=== PATIENT | female | born 1935 | race Caucasian/White ===

== ENCOUNTER 2016-11-18 11:29 | Outpatient (CLI) | payer MEDICARE ==
--- NOTE | 2016-11-19 15:11 | PET ---
NUCLEAR MEDICINE FDG PET CT WHOLE BODY: (Positron Emission Tomography) DATE: 11/18/16 HISTORY: 81-year-old female with two right lower lobe pulmonary nodules. COMPARISON: No prior PET CTs. There is a CT pulmonary angiogram of 10/30/16. TECHNIQUE: IV injection F-18 Fluorodeoxyglucose (FDG) dose: 13.1 mCi Whole body PET and attenuation-correction CT performed from skull base to proximal thighs. FINDINGS: SUV (standard uptake value) numbers given are maximum SUV's: The two noncalcified pulmonary nodules very close to each other at the lateral aspect of the inferio r portion of the right lower lobe are not hypermetabolic (SUVs of approximately 1.5 each). There are no abnormally hypermetabolic foci anywhere in the neck, chest, abdomen, or pelvis. Left hip replace ment arthroplasty hardware. IMPRESSION: 1. The two right lower lobe pulmonary nodules are not FDG avid. Recommend follow-up CT of the chest in 6 -12 months. 2. Status post left hip replacement arthroplasty. LIAN Aguilar POS: [facility]
== END 2016-11-18 11:30 | disposition home or self-care (01) ==
LOC: PET 11:29
PROVIDERS: ATTEND Internal Medicine
DX: Z09 Encounter for follow-up examination after completed treatment for conditions other than malignant neoplasm (principal); R91.1 Solitary pulmonary nodule; Z96.642 Presence of left artificial hip joint
CPT/HCPCS: 78815; A9552

== ENCOUNTER 2017-06-05 13:04 | Outpatient (CLI) | payer MEDICARE | END 2017-06-05 13:05 | disposition home or self-care (01) | LOC: BICCT 13:04 | PROVIDERS: ATTEND Internal Medicine | DX: R91.1 Solitary pulmonary nodule (principal); J84.10 Pulmonary fibrosis, unspecified | CPT/HCPCS: 71250 ==

== ENCOUNTER 2017-10-30 16:29 | Outpatient (CLI) | payer MEDICARE | END 2017-10-30 16:30 | disposition home or self-care (01) | LOC: BICRAD 16:29 | PROVIDERS: ATTEND Internal Medicine | DX: R07.81 Pleurodynia (principal) | CPT/HCPCS: 87077; 87086; 87186 ==

== ENCOUNTER 2017-10-31 15:24 | Emergency (ER) | payer MEDICARE ==
[2017-10-31 16:28] LABS: #Basophils 0.1 thou/uL (0.0-0.2); #Eosinphils 0.2 thou/uL (0.0-0.7); #Lymphocytes 1.4 thou/uL (1.20-3.40); #Monocytes 0.8 thou/uL (0.11-0.59); #Neutrophils 3.7 thou/uL (1.40-6.50); %Basophils 1.2 % (0.0-1.0); %Eosinophils 3.6 % (0.0-10.0); %Lymphocytes 22.8 % (21.0-51.0); %Monocytes 12.6 % (0.0-10.0); %Neutrophils 59.8 % (42.0-75.0); Hemoglobin 14.8 g/dL (12.0-16.0); Mean Corpuscular HGB CONC 34.1 g/dL (32.0-36.0); Mean Corpuscular Hemoglobin 32.5 pg (27.0-31.0); Mean Corpuscular Volume 95.4 fL (78.0-98.0); Platelet Count 164 thou/uL (130-400); RBC Distribution Width 11.8 % (11.5-14.5); Red Blood Cell (RBC) Count 4.55 mill/uL (4.20-5.40); White Blood Cell (WBC) Count 6.2 thou/uL (4.8-10.8)
[2017-10-31 16:34] LABS: INR-International Normal Ratio 1.9; Prothrombin Time 21.4 SEC (12.0-14.7)
--- NOTE | 2017-10-31 16:36 | CT ---
NONCONTRAST CT HEAD: 10/31/2017 HISTORY: Injury after fall. Multiple falls at home, landing on back of head. The patient is on blood thinner s. COMPARISON: 10/30/2016 FINDINGS: Again noted is moderate to severe chronic small vessel ischemic change, as well as mild cerebral volu me loss. There is no evidence of an acute cortical infarction, hemorrhage, mass effect, or midline s hift. The ventricular system is normal in size, shape, and position for the degree of sulcal atrophy . The visualized paranasal sinuses and mastoid air cells are clear. No calvarial fracture is identifie d. There has been no interval change from prior study. IMPRESSION: 1. No acute intracranial abnormalities demonstrated. 2. Chronic small vessel ischemic changes and cerebral volume loss, similar to prior study. POS: [facility]
[2017-10-31 16:47] LABS: ALT (SGPT) 19 U/L (8-55); AST (SGOT) 18 U/L (5-34); Alkaline Phosphatase 79 U/L (40-150); Anion Gap 12 mmol/L (10-20); BUN (Urea Nitrogen) 19 mg/dL (9.8-20.1); Bilirubin, Total 0.8 mg/dL (0.2-1.2); Calc. Creatinine Clearance 0 mL/min (70-130); Calcium 9.1 mg/dL (7.8-10.44); Carbon Dioxide 28 mmol/L (23-31); Chloride 102 mmol/L (98-107); Estimated GFR-MDRD 52; Globulin 2.8 g/dL (2.4-3.5); Glucose 212 mg/dL (83-110); Potassium 4.2 mmol/L (3.5-5.1); Protein, Total 6.8 g/dL (6.0-8.3); Sodium 138 mmol/L (136-145)
[2017-10-31 18:19] LABS: CKMB 1.3 ng/mL (0-6.6); Troponin I Less than 0.010 ng/mL (< 0.028)
--- NOTE | 2017-10-31 18:30 | RAD ---
SINGLE VIEW OF THE CHEST RIGHT RIB SERIES 10/31/17 COMPARISON: None. HISTORY: Multiple falls at home with right sided chest pain. FINDINGS: A single view of the chest and multiple views of the right ribs shows a normal sized cardiomediastina l silhouette. There is no evidence of consolidation, mass or pleural effusion. No pneumothorax or ple ural thickening are seen. No displaced right rib fracture is seen. No healing rib fractures are seen. No expansile rib lesions are present. IMPRESSION: No evidence of right rib abnormality. POS: [facility]
== END 2017-10-31 19:22 | disposition home or self-care (01) ==
LOC: ERS 15:24
DX: S09.90XA Unspecified injury of head, initial encounter (principal); R79.1 Abnormal coagulation profile; I48.91 Unspecified atrial fibrillation; E11.9 Type 2 diabetes mellitus without complications; I10 Essential (primary) hypertension; Z79.899 Other long term (current) drug therapy; W19.XXXA Unspecified fall, initial encounter
CPT/HCPCS: 36415; 70450; 80053; 82553; 84484; 85025; 85610; 93005

== ENCOUNTER 2017-12-28 10:07 | Outpatient (CLI) | payer MEDICARE ==
--- NOTE | 2017-12-28 15:47 | CT ---
CT CHEST NONCONTRAST 12/28/17 HISTORY: Lung nodules. Followup. COMPARISON: Multiple exams back to 10/30/16. FINDINGS: The lungs remain hyperinflated with scattered interstitial thickening and mild bullous change. Mild t ubular ectasia to the right lower lobe. At the lateral margin of the right lower lobe, the area of nodular infiltrate near the pleural has co ntinued to become less pronounced, with each of the nodules much smaller than on the prior exams. Bar jennie perceptible. No new masses are evident. No pleural fluid or pneumothorax. Lack of contrast limits evaluation of the soft tissues. No bulky adenopathy. There is calcification w ithin the arterial structures. Degenerative changes thoracic spine. IMPRESSION: Interval resolution of the nodules associated with the mild chronic infiltrate at the right lateral l kristal base. No new nodules are evident. COPD. Atherosclerosis. No further followup regarding the right lung nodules is required. POS: [facility]
== END 2017-12-28 10:08 | disposition home or self-care (01) ==
LOC: BICCT 10:07
PROVIDERS: ATTEND Internal Medicine
DX: R91.1 Solitary pulmonary nodule (principal); J44.9 Chronic obstructive pulmonary disease, unspecified; I70.0 Atherosclerosis of aorta
CPT/HCPCS: 71250

== ENCOUNTER 2018-03-26 12:13 | Outpatient (CLI) | payer MEDICARE ==
--- NOTE | 2018-03-26 13:30 | RAD ---
RIGHT HIP RADIOGRAPHS 2 VIEWS: DATE: 03/26/2018. PROVIDED CLINICAL HISTORY: Right hip pain status post fall. FINDINGS: There is no evidence for a fracture or other acute osseous abnormality. Alignment appears anatomic. Joint spaces appear preserved. Vascular calcifications are seen. IMPRESSION: No evidence for an acute osseous abnormality. If there is persistent clinical concern, conservative management and followup imaging are advised. POS: [facility]
--- NOTE | 2018-03-26 13:33 | RAD ---
LUMBAR SPINE RADIOGRAPHS 3 VIEWS: DATE: 03/26/2018. PROVIDED CLINICAL HISTORY: Low back pain. FINDINGS: Five [id number] lumbar-type vertebral bodies are present with hypoplastic ribs present at T12. There is grade I anterolisthesis of L4 on L5. Lumbar alignment appears otherwise normal. Vertebral body heights appear preserved. Advanced multilevel disk and facet degenerative changes are seen. IMPRESSION: Advanced multilevel lumbar disk and facet degenerative change without evidence for an acute osseous a bnormality. POS: [facility]
== END 2018-03-26 12:14 | disposition home or self-care (01) ==
LOC: BICRAD 12:13
PROVIDERS: ATTEND Internal Medicine
DX: M54.5 Low back pain (principal); M25.551 Pain in right hip; M47.816 Spondylosis without myelopathy or radiculopathy, lumbar region; E11.29 Type 2 diabetes mellitus with other diabetic kidney complication; R80.9 Proteinuria, unspecified
CPT/HCPCS: 72100; 80048; 81001; 82043; 87086

== ENCOUNTER 2018-04-29 16:01 | Outpatient (CLI) | payer MEDICARE ==
--- NOTE | 2018-04-29 17:08 | RAD ---
THREE VIEWS LUMBAR SPINE: Indication: Low back pain, sciatica. FINDINGS: There is prominent dextroscoliosis with severe multilevel degenerative change throughout the lumbar s pine. There is accentuation of the lumbar lordosis. Evaluation of spinal alignment is limited on the lateral view due to scoliotic curvature. No obvious acute compression fracture. There is a partially imaged left hip prosthesis. IMPRESSION: Severe multilevel degenerative change and dextroscoliosis of the lumbar spine. POS: [facility]
--- NOTE | 2018-04-29 17:27 | RAD ---
RIGHT HIP 2 VIEWS: Date: 04/29/18 INDICATION: Right hip pain. FINDINGS: There is moderate osteoarthritis of right hip. No fracture or dislocation is visualized. IMPRESSION: 1. No acute osseous abnormality of right hip. 2. Moderate osteoarthritis. POS: [facility]
== END 2018-04-29 16:02 | disposition home or self-care (01) ==
LOC: BICRAD 16:01
PROVIDERS: ATTEND Internal Medicine
DX: M25.551 Pain in right hip (principal); M54.31 Sciatica, right side; M54.32 Sciatica, left side; M16.11 Unilateral primary osteoarthritis, right hip; M41.9 Scoliosis, unspecified; M47.816 Spondylosis without myelopathy or radiculopathy, lumbar region
CPT/HCPCS: 72100

== ENCOUNTER 2018-05-14 15:12 | Outpatient (CLI) | payer MEDICARE ==
--- NOTE | 2018-05-14 16:46 | MRI ---
MRI LUMBAR SPINE WITHOUT IV CONTRAST 05/14/18 Multiplanar and multisequential imaging lumbar spine obtained. INDICATIONS: Sciatica right side. Low back pain. FINDINGS: There is a scoliotic curvature with moderate degenerative changes of the lumbar spine with spurring f rom all levels. Loss of disc space at all levels. Slight posterolisthesis at T12-L1 and at L1-2. Ther e is a grade I anterolisthesis at L4-5. Prominent degenerative disc and end plate changes at T12-L1. At T12-L1 level, a diffuse bulge associated with degenerative change. There is a posterolisthesis of T12 on L1. Posterior facet hypertrophy. These changes result in mild central canal stenosis. Bilatera l foraminal stenosis is present at this level. At L1-2, mild diffuse disc bulge flattens the thecal sac. Moderate facet hypertrophy. Mild central ca nal stenosis. Mild foraminal encroachment. At L2-3, mild disc bulge. Prominent facet and ligamentous hypertrophy. Mild to moderate central canal stenosis. Bilateral foraminal stenosis. At L3-4, mild disc bulge. Facet and ligamentous hypertrophy. Mild central canal stenosis. Mild right foraminal narrowing. At L4-5, grade I listhesis. Mild diffuse disc bulge. Prominent facet and ligamentous hypertrophy. Mil d central canal stenosis. Mild right foraminal narrowing due to disc osteophyte complex projecting to the right and facet hypertrophy. At L5-S1, mild disc bulge. Facet hypertrophy. No central canal or foraminal stenosis. IMPRESSION: Degenerative disc changes throughout the lumbar spine. Grade I listhesis at L4-5. Central canal and f oraminal stenosis as described above. POS: [facility]
== END 2018-05-14 15:13 | disposition home or self-care (01) ==
LOC: BICMRI 15:12
PROVIDERS: ATTEND Internal Medicine
DX: M51.16 Intervertebral disc disorders with radiculopathy, lumbar region (principal); M48.061 Spinal stenosis, lumbar region without neurogenic claudication; M48.05 Spinal stenosis, thoracolumbar region; M43.16 Spondylolisthesis, lumbar region
CPT/HCPCS: 72148

== ENCOUNTER 2018-05-27 11:28 | Outpatient (CLI) | payer MEDICARE ==
--- NOTE | 2018-05-27 12:28 | RAD ---
FExam: Chest 2 views HISTORY:Cough Comparison: 10/30/2016 FINDINGS: Lungs: Mild bilateral perihilar interstitial prominence Cardiac silhouette:Stable Pulmonary vessels: Normal Pleural Spaces: Clear Pneumothorax: None Osseous abnormalities: None of acuity. IMPRESSION: Mild bilateral perihilar interstitial prominence may relate to fluid overload/edema. Oscar mmend clinical correlation.
== END 2018-05-27 11:29 | disposition home or self-care (01) ==
LOC: BICRAD 11:28
PROVIDERS: ATTEND Internal Medicine
DX: R05 Cough (principal); R91.8 Other nonspecific abnormal finding of lung field
CPT/HCPCS: 36415; 71046; 80053; 85025

== ENCOUNTER 2018-10-03 18:44 | Inpatient (IN) | payer MEDICARE ==
[~2018-10-03 18:44] MED LIST: Ondansetron PF 4 MG/2 ML Vial ONE; PROPOFOL 200 MG/20 ML VIAL ONE
[2018-10-03] MEDS ORDERED: Norepinephrine 4 MG/4 ML VIAL ONE ×2 (19:02→19:03)
[2018-10-03] MEDS ORDERED: Calcium Chloride 1 GM/10 ML Abboject SYRINGE ONE (19:04)
[2018-10-03] MEDS ORDERED: Sodium Bicarb 50 MEQ/50 ML VIAL ONE (19:04)
[2018-10-03 19:05] LABS: #Eosinphils 0.2 thou/uL (0.0-0.7); #Lymphocytes 2.5 thou/uL (1.20-3.40); #Monocytes 0.7 thou/uL (0.11-0.59); %Basophils 0.4 % (0.0-1.0); %Eosinophils 1.2 % (0.0-10.0); %Lymphocytes 20.4 % (21.0-51.0); %Monocytes 5.6 % (0.0-10.0); %Neutrophils 72.4 % (42.0-75.0); Hemoglobin 14.3 g/dL (12.0-16.0); Mean Corpuscular HGB CONC 34.2 g/dL (32.0-36.0); Mean Corpuscular Volume 93.6 fL (78.0-98.0); Mean Platelet Volume 9.7 fL (7.4-10.4); Platelet Count 149 thou/uL (130-400); RBC Distribution Width 11.6 % (11.5-14.5); Red Blood Cell (RBC) Count 4.46 mill/uL (4.20-5.40); White Blood Cell (WBC) Count 12.4 thou/uL (4.8-10.8)
[2018-10-03 19:11] LABS: INR-International Normal Ratio 3.4; PTT 38.2 SEC (22.9-36.1); Prothrombin Time 33.9 SEC (12.0-14.7)
[2018-10-03] MEDS ORDERED: Piperacillin/Tazobactam 4.5 GM VIAL ONE (19:15)
--- NOTE | 2018-10-03 19:15 | RAD ---
XR Chest 1 View Portable HISTORY: Fall. COMPARISON: 12/04/2015 study FINDINGS: Heart size appears borderline enlarged. Endotracheal and NG tubes are in satisfactory posit ion there are atherosclerotic changes of the aorta. The lungs are clear of infiltrates. No rib fractures identified. IMPRESSION: Borderline heart size. Endotracheal and NG tubes in satisfactory position.
[2018-10-03 19:18] LABS: ALT (SGPT) 24 U/L (8-55); AST (SGOT) 25 U/L (5-34); Albumin 3.6 g/dL (3.4-4.8); Alkaline Phosphatase 61 U/L (40-150); Anion Gap 15 mmol/L (10-20); BUN (Urea Nitrogen) 15 mg/dL (9.8-20.1); Bilirubin, Total 0.4 mg/dL (0.2-1.2); Calc. Creatinine Clearance 0 mL/min (70-130); Calcium 8.4 mg/dL (7.8-10.44); Carbon Dioxide 21 mmol/L (23-31); Chloride 104 mmol/L (98-107); Estimated GFR-MDRD 60; Globulin 2.1 g/dL (2.4-3.5); Glucose 254 mg/dL (83-110); Potassium 3.8 mmol/L (3.5-5.1); Protein, Total 5.7 g/dL (6.0-8.3); Sodium 136 mmol/L (136-145)
[2018-10-03 19:19] LABS: Bacteria/HPF None Seen HPF (None Seen); Bilirubin Negative (Negative); Blood, Urine Negative (Negative); Clarity Clear (Clear); Glucose, Urine (Dipstick) 150 mg/dL (Negative); Leukocyte Negative Leu/uL (Negative); Nitrite Negative (Negative); Protein, Urine (Dipstick) 70 mg/dL (Neg-Trace); RBC/HPF 0-3 HPF (0-3); Squamous Epithelial None Seen HPF (0-3); Urobilinogen Normal mg/dL (Less than 2); WBC/HPF 0-3 HPF (0-3)
--- NOTE | 2018-10-03 19:23 | RAD ---
XR Chest 1 View Portable HISTORY: Central line placement COMPARISON: Exam done earlier today. FINDINGS: A left-sided central line is seen in the catheter tip overlies the right atrium. No signs o f pneumothorax. No other interval change. IMPRESSION: Placement of central line, the catheter tip overlies the right atrium.
[2018-10-03 19:26] LABS: Lactic Acid 4.3 mmol/L (0.5-2.2)
[2018-10-03 19:27] LABS: Phosphorus 4.3 mg/dL (2.3-4.7)
[2018-10-03 19:27] LABS: Amphetamine Not Detected (NotDetected); Barbiturates Screen Not Detected (NotDetected); Benzodiazepine Screen Not Detected (NotDetected); Cocaine Metabolite Screen Not Detected (NotDetected); Medtox Control Line Valid? VALID (VALID); Medtox Reader # READER 4; Methadone Not Detected (NotDetected); Methamphetamine Not Detected (NotDetected); Opiate Screen Not Detected (NotDetected); Oxycodone Screen Not Detected (NotDetected); Phencyclidine (PCP) Not Detected (NotDetected); THC/Cannabinoid Screen Not Detected (NotDetected); Tricyclic Screen Not Detected (NotDetected)
[2018-10-03] MEDS ORDERED: Phytonadione 10 MG/ML AMP ONE (19:29)
[2018-10-03] MEDS ORDERED: manNITOL 20% 500 ML ONE (19:31)
--- NOTE | 2018-10-03 19:32 | RAD ---
PELVIC RADIOGRAPH 10/03/18 PROVIDED CLINICAL HISTORY: Trauma. FINDINGS: Comparison 11/25/15. The inferior aspects of the pelvis are not included on the image. Partially visualized left total hip arthroplasty. Evaluation is limited due to overlying bowel gas. IMPRESSION: Limited study. POS: [facility]
[2018-10-03] MEDS ORDERED: Thrombin 5000 UNITS/5 ML VIAL ONE (19:37)
[2018-10-03] MEDS ORDERED: Lidocaine 0.5%/Epinephrine 1:200,000 50 ml Vial ONE (19:37)
[2018-10-03] MEDS ORDERED: Sodium Chloride 0.9% 10 ML ONE (19:37)
[2018-10-03 19:39] LABS: Acetaminophen Less than 6.0 mcg/mL (10.0-30.0); Alcohol Less than 10 mg/dL (Less than 10); Salicylate Less than 8.0 mg/dL (15.0-30.0)
--- NOTE | 2018-10-03 19:39 | CT ---
CT Brain WO Con HISTORY: Fell and hit head. COMPARISON: 10/31/2017 study FINDINGS: There is a large acute extra-axial bleed over the left frontal temporal region. This measur es approximately 2 cm in thickness and is associated with approximately 13 to 14 mm of shift of midline structures to the right with subfalcine herniation. There is also a left unilateral descendin g transtentorial herniation and dilatation of the right temporal horn. There is blood within the cisterns and possibly brainstem bleed with increased attenuation in this area somewhat difficult to a ssess due to artifact. There is also effacement of the sulci suggesting cerebral edema. IMPRESSION: Large acute left subdural hematoma with marked subfalcine herniation also evidence for un abby herniation. There is also a questionable brainstem bleed associated with this. Diffuse cerebral edema also noted. Findings telephoned to Dr. Gregorio at 1930 hours.
--- NOTE | 2018-10-03 19:41 | CT ---
CT CERVICAL SPINE 10/03/18 PROVIDED CLINICAL HISTORY: Altered mental status, status post head trauma. FINDINGS: There is no evidence for fracture or traumatic subluxation. Cervical degenerative changes are seen. T he visualized lung apices appear clear. No prevertebral soft tissue swelling apparent, partially visu alized. Endotracheal and enteric catheters. Partially visualized intracranial hemorrhage. IMPRESSION: No evidence for fracture or traumatic subluxation. Please see concurrently performed CT brain. POS: [facility]
[2018-10-03 19:43] LABS: Actual Bicarbonate (HCO3a) 21.6 mEq/L (22-28); Analyzer IN Cardio ER; Base Excess (BEa) -4.8 mEq/L (-2.0 to +3.0); CO2 Tension 44.9 mmHg (35.0-45.0); Calcium, Ionized 1.06 mmol/L (1.12-1.30); Carboxyhemoglobin (COHb) 0.5 gm% (0.0-3.0); Hemoglobin (Hb) 13.4 g/dL (12.0-16.0); O2 Tension (PaO2) 60.7 mmHg (> 60.0); Potassium - ABG Lab 3.19 mmol/L (3.70-5.30)
[2018-10-03] MEDS ORDERED: HUM PROTHROMBIN CPLX IV SCH (19:45)
[2018-10-03] MEDS ORDERED: [UNRECOGNIZED DRUG - OTHER] IV SCH (19:45)
[2018-10-03 19:48] LABS: ALV-art Gradient 382.275 (0-20); Puncture Site R BRACHIAL
[2018-10-03 19:56] LABS: Actual Bicarbonate (HCO3a) 23.1 mEq/L (22-28); Analyzer IN Cardio ER; Base Excess (BEa) -0.9 mEq/L (-2.0 to +3.0); CO2 Tension 36.2 mmHg (35.0-45.0); Calcium, Ionized 1.13 mmol/L (1.12-1.30); Carboxyhemoglobin (COHb) 0.5 gm% (0.0-3.0); Hemoglobin (Hb) 13.8 g/dL (12.0-16.0); O2 Tension (PaO2) 112.8 mmHg (> 60.0); Potassium - ABG Lab 3.51 mmol/L (3.70-5.30); pH, Arterial 7.42 (7.35-7.45)
[2018-10-03] MEDS ORDERED: fentaNYL Citrate/PF 2,000 MCG in Sodium Chloride 0.9% 60 ML IV SCH (19:59)
[2018-10-03 20:00] LABS: Puncture Site R BRACHIAL
[2018-10-03] MEDS ORDERED: Fentanyl 100 MCG/2 ML VIAL ONE (20:13)
[2018-10-03] MEDS ORDERED: Dextrose 50% Abboject 50 ML SYRINGE SLOW IVP PRN (20:24)
[2018-10-03] MEDS ORDERED: Dextrose 5% in Water 1,000 ML IV PRN (20:24)
[2018-10-03] MEDS ORDERED: Phenylephrine HCL 10 MG/ML VIAL ONE (20:29)
[2018-10-03] MEDS ORDERED: Sodium Chloride 0.9% 1,000 ML IV SCH (20:30)
--- NOTE | 2018-10-03 20:38 | CON ---
DATE OF CONSULTATION: 10/03/2018 HISTORY OF PRESENT ILLNESS: Ms. Ramos is an 83-year-old female, who was in her usual state of health at home and she had altered level of consciousness somewhat abruptly several hours after a fall. Of note, she is on Coumadin. She presented to the ER after the family activated EMS. She was intubated prior to arrival due to her poor neurologic state. A CT scan performed upon arrival in the ER reveals a large left-sided cerebral convexity, subdural hematoma with a substantial degree of midline shift with herniation. In the ER, she was given Kcentra and mannitol as well as vitamin K. We will plan on ordering FFP at this time. I examined her and she is currently GCS 3T. I reviewed the images and I had a lengthy discussion with the family and reviewed with them the images. The proposed surgical procedure, which would be a left-sided craniotomy with evacuation of hematoma. I did convey to them the purpose of this procedure is meant to be a life-saving procedure. I also conveyed to them given her age and degree of blood product and shift that she likely has a poor prognosis with respect to functional status. Given that information, they have requested we move forward with surgery. I discussed the risks, benefits, and alternatives of surgery. Job ID: [id number] MTDD
[2018-10-03] MEDS ORDERED: Insulin Regular 300 UNITS/3 ML VIAL ONE (20:41)
[2018-10-03 20:53] LABS: INR-International Normal Ratio 1.3; Prothrombin Time 16.2 SEC (12.0-14.7)
[2018-10-03] MEDS ORDERED: Famotidine/PF 20 mg/2ml Vial SLOW IVP SCH (21:00)
[2018-10-03] MEDS ORDERED: Bacitracin Zinc Ointment 30 gm TUBE ONE (21:01)
--- NOTE | 2018-10-03 21:01 | OP ---
DATE OF PROCEDURE: 10/03/2018 PREOPERATIVE DIAGNOSES: 1. Acute severe traumatic brain injury with large left-sided subdural hematoma with [id number] midline shift. 2. Acute posttraumatic respiratory failure. 3. Acute lactic acidosis. POSTOPERATIVE DIAGNOSES: 1. Acute severe traumatic brain injury with large left-sided subdural hematoma with [id number] midline shift. 2. Acute posttraumatic respiratory failure. 3. Acute lactic acidosis. PROCEDURE PERFORMED: Placement of left radial arterial catheter. INDICATIONS FOR PROCEDURE: An 83-year-old woman suffered a severe left subdural hematoma following a ground-level fall. She has been hemodynamically unstable here, requiring large volume fluid resuscitation and vasopressor support. I am placing an arterial catheter for continuous blood pressure monitoring. DESCRIPTION OF PROCEDURE: The patient was placed in supine position. Left wrist was sterilely prepped and draped in usual fashion. Left radial artery was palpated at the wrist and was then cannulated with a 20-gauge arterial catheter over the guidewire. The guidewire was removed leaving the catheter in place returning pulsatile blood. The catheter was connected to a transducer, noting proper arterial waveforms. The catheter was secured to the left wrist using 3-0 silk suture. Sterile dressings were applied. The patient tolerated the procedure without any apparent complication. Job ID: [id number]
[2018-10-03] MEDS ORDERED: Magnesium 2 GM/50 ML 2 GM in Premix Bag 1 BAG IVPB SCH (22:00)
[2018-10-03 22:03] LABS: Actual Bicarbonate (HCO3a) 23.9 mEq/L (22-28); Base Excess (BEa) -0.1 mEq/L (-2.0 to +3.0); Calcium, Ionized 1.12 mmol/L (1.12-1.30); Carboxyhemoglobin (COHb) 0.9 gm% (0.0-3.0); Hemoglobin (Hb) 13.3 g/dL (12.0-16.0); Potassium - ABG Lab 3.89 mmol/L (3.70-5.30); pH, Arterial 7.43 (7.35-7.45)
[2018-10-03 22:18] LABS: Puncture Site LINE
[2018-10-03 22:25] LABS: Lactic Acid 4.7 mmol/L (0.5-2.2)
--- NOTE | 2018-10-03 22:25 | RAD ---
XR Chest 1 View Portable HISTORY: Postop chest COMPARISON: Earlier exam of the same day. FINDINGS: There is been development of atelectatic changes within the right lung base possibly on the basis of mucous plugging. The left lung is clear. No other interval change is noted. IMPRESSION: Atelectatic changes in the right lung base.
--- NOTE | 2018-10-03 22:28 | RAD ---
XR Hip Lt 2-3 View HISTORY: Fall with hip pain. COMPARISON: AP pelvis done earlier today FINDINGS: A left hip prosthesis is in good position without evidence of loosening. There is an acute appearing left inferior pubic ramus fracture. I do not see a definite superior pubic rami fracture. The bones appear demineralized. IMPRESSION: Acute appearing left inferior pubic rami fracture.
--- NOTE | 2018-10-03 22:29 | RAD ---
XR Pelvis AP STANDARD HISTORY: Left hip pain status post fall. COMPARISON: Earlier examination the same day. FINDINGS: There is an acute appearing left inferior pubic rami fracture. It is nondisplaced. No defin ite superior pubic rami fracture or sacral fracture is seen. IMPRESSION: Left inferior pubic rami fracture.
[2018-10-03] MEDS: ceFAZolin 1 GM/D5W 1 GM in Premix Bag 1 BAG IVPB SCH (22:35)
[2018-10-03] MEDS ORDERED: Sodium Chloride 0.9% 500 ML IV SCH (22:45)
[2018-10-04] MEDS: Insulin Regular 300 UNITS/3 ML VIAL SC PRN ×4 (00:31→12:15)
[2018-10-04] MEDS: hydrALAZINE 20 MG/ML VIAL SLOW IVP PRN ×2 (01:02→22:20)
--- NOTE | 2018-10-04 01:23 | PRG ---
DATE OF SERVICE: 10/03/2018 SUBJECTIVE: The patient was seen today during evening rounds in the ICU. She was immediately postoperative status post the left hemicranium. At the time of my evaluation, the patient's GCS was 3T and she was hemodynamically stable, weaned off all pressors and making urine appropriately. Postoperative chest x-ray, as well as x-rays of the left hip and pelvis were completed. Lactic acid and ABG were also sent. There appeared to be some new bruising over her left hip at the time of the secondary survey. OBJECTIVE: VITAL SIGNS: Temperature 94.5, pulse 81, respirations 12, oxygen saturation 98% on FiO2 of 70%, and blood pressure is 105/45. GENERAL: Elderly female, lying in bed, intubated with no sedation with no signs of acute respiratory distress. PULMONARY: Equal chest rise and fall. Clear breath sounds bilaterally. No signs of acute respiratory distress. CARDIAC: Regular rate and rhythm. No murmurs, gallops, or rubs. GI: Abdomen is soft, nontender, and nondistended. PELVIS: Stable to manipulation. Small bruising over the left lateral hip. EXTREMITIES: 2+ pulses in all extremities. No significant swelling noted. Head bandage in place with two SHADY drains. Bandage over left hemicranium appears to be clean, dry, and intact with no signs of oozing or bleeding. NEUROLOGIC: GCS is 3T. Pupils are 5 mm and nonreactive. The patient is making no purposeful movements at this time. LABORATORY FINDINGS: Lactic acid is 4.7. Cortisol is 21.2. Troponin is 0.022. ABG demonstrates pH of 7.43, CO2 of 37, PO2 of 58, oxygen saturation 91.7, base excess is -0.1, bicarb is 23.9. ABG hemoglobin 13.3, hematocrit 39.0. Sodium 141, potassium 3.86, chloride 101, ionized calcium 1.12. DIAGNOSTIC FINDINGS: Postop chest x-ray completed in the ICU demonstrates atelectatic changes to the right lung base. X-ray of the pelvis completed postoperatively demonstrates a left inferior pubic rami fracture. X-ray of the left hip completed postoperatively demonstrates acute appearing left inferior pubic rami fracture. ASSESSMENT: 1. Status post fall from standing on Coumadin. 2. Large acute left subdural hematoma with marked subfalcine herniation and uncal herniation. 3. Left inferior pubic rami fracture. 4. History of atrial fibrillation, hypertension, diabetes, and hypothyroidism. PLAN: Postoperative imaging and updated laboratory findings were communicated to Dr. Griffin. The patient did receive 500 mL of normal saline postoperatively for elevated lactic acid and CVP of 2-3. We will closely continue to monitor urinary output and repeat lactic acid in the morning. At the time of the ABG, patient's FiO2 was 50%, it was increased to 70 and her PEEP was increased from 5-8. Orthopedic Surgery was consulted for the patient's left inferior pubic rami fracture. We will follow up their recommendations tomorrow. We will continue to hold all of her home medications. Repeat INR postoperatively was 1.3. Magnesium was also replaced this evening. The patient is to receive fentanyl drip p.r.n. for sedation and pain control. Goal systolic blood pressure is less than 160 mmHg. Head of the bed elevated at 30 degrees as well. The patient was discussed with Dr. Griffin before this dictation. Job ID: [id number] [facility]
--- NOTE | 2018-10-04 02:16 | HP ---
HISTORY OF PRESENT ILLNESS: Ms. Ramos is an 83-year-old woman, who was in her usual state of health up until around 1400 hours today. The patient was going to use the bathroom and reportedly turned and fell on her left side according to her . There appeared to have been no head trauma at the time as the examined her and finding no markers of trauma about her. She suffered no loss of consciousness. Approximately at 1545 hours, her daughter had called on the phone and spoke to her and she was neurologically normal. About 1800 hours, she was sitting at the table at dinner and her noticed the patient suddenly became unresponsive and was vomiting. He immediately called 911. EMS responded and found the patient unresponsive reportedly with a [place] Coma Scale of 3. The patient was electively intubated using ketamine and rocuronium. The patient was then transported via ground EMS to [facility] in [place], [place]. She arrived quite hypotensive. Her pupils were fixed and dilated at 5 mm bilaterally. She was pharmacologically paralyzed and sedated. Most of the history is obtained from chart review and from speaking to the patient's . MEDICAL HISTORY: Significant for chronic atrial fibrillation, hypothyroidism, diabetes mellitus and essential hypertension. SURGICAL HISTORY: Pertinent for left hip arthroplasty in November 2015. She also had a cardioversion in March 2015. SOCIAL HISTORY: She is , lives at home with her elderly . She has no cigarette smoking, ethanol or illicit drug abuse history. PREHOSPITAL MEDICATIONS: Include; 1. Losartan 25 mg p.o. daily. 2. Metformin 500 mg p.o. daily. 3. Melatonin 6 mg p.o. at bedtime. 4. Metoprolol 50 mg p.o. b.i.d. ALLERGIES: THE PATIENT HAS NO KNOWN DRUG ALLERGIES. REVIEW OF SYSTEMS: Could not be obtained as the patient is in deep coma at the moment. She has no external markers of trauma about her. PHYSICAL EXAMINATION: GENERAL: This reveals an 83-year-old normally developed woman, who is in deep coma and extremis. VITAL SIGNS: Initial vital signs include blood pressure of 45/33, pulse 118, respiratory rate is 12, temperature 96.8 degrees Fahrenheit, oxygen saturation 92% on 100% FiO2. [place] Coma Scale noted at 3. The patient had received approximately 500 mL of crystalloids by EMS prior to arrival. We gave additionally 1.5 L of crystalloids. The patient was given sodium bicarbonate 50 mEq and 1 g of calcium chloride. Blood pressure immediately improved and stabilized with a systolic blood pressure in the mid 140s. HEENT: Reveals both pupils fixed and dilated at 5 mm bilaterally. She has no intraoral lesions noted. There is no jugular venous distention noted. HEART: Reveals Irregular rate and rhythm . LUNGS: Clear to auscultation bilaterally. Her breathing is regular and nonlabored. ABDOMEN: Soft, nontender, nondistended. EXTREMITIES: Reveals 2+ radial and pedal pulses bilaterally. No ankle edema is present. LABORATORY FINDINGS: Today includes a CBC with 12,400 white blood cells and hemoglobin and hematocrit 14.3 and 41.8 respectively. Platelet count 149,000. Arterial blood gas: PH 7.30, pCO2 is 45, PO2 of 61, oxygen saturation 90%, base excess -4.8, ionized calcium 1.06 and this is prior to the patient receiving sodium bicarbonate and calcium chloride. Metabolic profile: Sodium 136, potassium 3.8 , chloride is 104, bicarb is 21, BUN 15, creatinine is 0.90, glucose is 254, lactic acid 4.3, phosphorus is 4.3, magnesium is 1.6. Troponin I is 0.022. I have personally reviewed the CT scan of the brain, which is remarkable for large left convexity subdural hematoma with 14 cm left to right midline shift. Cervical spine CT scan reveals no fractures or dislocation. Chest x-ray is unremarkable for any acute intrathoracic pathology. PTT and INR elevated at 38.2 seconds and 3.4 respectively. IMPRESSIONS: 1. Status post ground level fall. 2. Acute severe traumatic brain injury with large left convexity subdural hematoma with 14 mm left to right midline shift. 3. Severe cerebral edema secondary to left-sided subdural hematoma. 4. Acute posttraumatic respiratory failure. 5. Warfarin-induced coagulopathy. 6. Acute hypomagnesemia. 7. Acute hypocalcemia. PLAN: 1. Neurosurgical consultation with Dr. Sánchez Garcia for emergent craniectomy and hematoma evacuation. 2. We will continue with full mechanical ventilator support. The patient is given 250 mL of 20% mannitol. We will maintain the end-tidal pCO2 between 32 and 40 until craniectomy has been accomplished. 3. Correct abnormal electrolytes. 4. We will reverse the warfarin-induced coagulopathy using 4-factor prothrombin complex. Above findings and plan has been discussed with the patient's and adult daughter. They indicated understanding of information given. Total critical care time is 55 minutes. Job ID: [id number] [facility]TDD
[2018-10-04] MEDS ORDERED: Metoprolol Tartrate 5 MG/5 ML VIAL IVP PRN ×2 (04:07→04:12)
[2018-10-04 04:31] LABS: #Monocytes 1.1 thou/uL (0.11-0.59); #Neutrophils 16.3 thou/uL (1.40-6.50); %Basophils 0.1 % (0.0-1.0); %Eosinophils 0.2 % (0.0-10.0); %Lymphocytes 5.6 % (21.0-51.0); %Monocytes 6.1 % (0.0-10.0); Hemoglobin 13.5 g/dL (12.0-16.0); Mean Corpuscular HGB CONC 33.8 g/dL (32.0-36.0); Mean Corpuscular Hemoglobin 31.5 pg (27.0-31.0); Mean Corpuscular Volume 93.3 fL (78.0-98.0); Mean Platelet Volume 9.8 fL (7.4-10.4); Platelet Count 156 thou/uL (130-400); RBC Distribution Width 11.8 % (11.5-14.5); Red Blood Cell (RBC) Count 4.29 mill/uL (4.20-5.40); White Blood Cell (WBC) Count 18.5 thou/uL (4.8-10.8)
[2018-10-04] MEDS: Ondansetron PF 4 MG/2 ML Vial IVP PRN (04:36)
[2018-10-04 04:37] LABS: INR-International Normal Ratio 1.2; Prothrombin Time 14.9 SEC (12.0-14.7)
[2018-10-04 04:52] LABS: Lactic Acid 9.2 mmol/L (0.5-2.2)
[2018-10-04 04:56] LABS: Anion Gap 20 mmol/L (10-20); BUN (Urea Nitrogen) 13 mg/dL (9.8-20.1); Calc. Creatinine Clearance 44 mL/min (70-130); Carbon Dioxide 19 mmol/L (23-31); Chloride 107 mmol/L (98-107); Estimated GFR-MDRD 49; Glucose 314 mg/dL (83-110); Magnesium 2.1 mg/dL (1.6-2.6); Potassium 3.6 mmol/L (3.5-5.1); Sodium 142 mmol/L (136-145)
[2018-10-04] MEDS: ceFAZolin 1 GM/D5W 1 GM in Premix Bag 1 BAG IVPB SCH ×3 (05:11→22:21)
[2018-10-04] MEDS ORDERED: Potassium Phosphate 15 MMOL in Sodium Chloride 0.9% 250 ML 250 ML IVPB SCH (05:15)
[2018-10-04] MEDS ORDERED: Sodium Chloride 0.9% 500 ML IV SCH (05:30)
[2018-10-04] MEDS ORDERED: Norepinephrine 8 MG in Dextrose 5% in Water 242 ML IVPB PRN (05:46)
[2018-10-04] MEDS: Sodium Chloride 0.9% 1,000 ML IV SCH ×3 (05:57→22:26)
[2018-10-04 06:03] LABS: Lactic Acid 6.7 mmol/L (0.5-2.2)
[2018-10-04 06:42] LABS: Actual Bicarbonate (HCO3a) 18.2 mEq/L (22-28); Base Excess (BEa) -7.7 mEq/L (-2.0 to +3.0); CO2 Tension 38.5 mmHg (35.0-45.0); Calcium, Ionized 1.13 mmol/L (1.12-1.30); Carboxyhemoglobin (COHb) 0.8 gm% (0.0-3.0); O2 Tension (PaO2) 166.8 mmHg (> 60.0); Potassium - ABG Lab 3.64 mmol/L (3.70-5.30); pH, Arterial 7.29 (7.35-7.45)
[2018-10-04 06:58] LABS: Puncture Site ALINE
[2018-10-04 07:00] LABS: ALV-art Gradient 284.175 (0-20)
--- NOTE | 2018-10-04 08:08 | RAD ---
AP CHEST: History: Respiratory failure. Comparison: 10-03-18 FINDINGS: There is hazy infiltrate and atelectasis in the right lower lung, similar to the 10-03-18 exam. Left e ffusion and left basilar atelectasis is noted. Upper lung adan are clear. NG tube and central line remain in place. Probably no significant interval change from yesterday. POS: [facility]
[2018-10-04] MEDS: Acetaminophen 1,000 MG in Premix Bag 1 BAG IVPB SCH ×3 (08:33→21:18)
[2018-10-04] MEDS: Propofol 1,000 MG/100 ML VIAL IV PRN ×2 (08:35→17:43)
--- NOTE | 2018-10-04 11:05 | PRG ---
DATE OF SERVICE: 10/04/2018 SUBJECTIVE: Ms. Ramos is an 83-year-old woman, who is post injury day #1, status post ground level fall. The patient suffered a large left convexity subdural hematoma with significant left to right midline shift. She required an emergent craniectomy with evacuation of large subdural hematoma. Currently, she is in deep coma, on full mechanical ventilator support. Yue Coma Scale is noted at E1 M3 V1T. Urinary output has been adequate. OBJECTIVE: VITAL SIGNS: This morning include blood pressure 107/61, pulse is 117 and irregular, respiratory rate is 24, temperature is 98.4 degrees Fahrenheit, and oxygen saturation is 99% on FiO2 of 70%. HEENT: Pupils are equal, round, and reactive to light at 3 mm bilaterally. NECK: She has no jugular venous distention noted. HEART: Reveals irregular rate and irregular rhythm. Less tachycardic compared to yesterday. LUNGS: Reveal bibasilar rhonchi. Breathing is regular and nonlabored. ABDOMEN: Soft, nontender, and nondistended. EXTREMITIES: Reveal 2+ radial and pedal pulses bilaterally. No ankle edema is present. LABORATORY FINDINGS: This morning include CBC with 18,500 white blood cells, hemoglobin and hematocrit 13.5 and 40.0 respectively. Platelet count is 156,000. Metabolic profile; sodium 142, potassium 3.6, chloride is 107, bicarb is 19, BUN 13, creatinine is 1.07, glucose is 314, phosphorus is 3.0, magnesium is 2.1. Chest x-ray today, this reveals right lower lobe pulmonary infiltrates. There is a small left pleural effusion. No pneumothorax is present. IMPRESSION: 1. Post injury day #1 status post ground level fall with large left convexity subdural hematoma. 2. Postop day #1 status post emergent craniectomy and evacuation of large left subdural hematoma. 3. Acute posttraumatic respiratory failure. 4. Acute hyperglycemia, history of diabetes mellitus. PLAN: 1. Continue with full mechanical ventilator support until the patient is neurologically stable. 2. We will optimize glucose control with insulin. 3. Continue with nonpharmacological VTE prophylaxis due to this patient relative contraindication for chemical VTE prophylaxis. 4. Initiate physical and occupational therapy. 5. Above findings and plan discussed with the patient's adult daughter at bedside. 6. She indicates understanding of information given. I have answered their questions. Total critical care time is 45 minutes. Job ID: [id number]
--- NOTE | 2018-10-04 17:35 | PRG ---
DATE OF SERVICE: 10/04/2018 Ms. Ramos is postop day #1, following emergent left-sided hemicraniectomy with subdural hematoma evacuation after a fall with Coumadin on board. Her INR this morning is 1.2 at 4 a.m. Unfortunately, her examination is rather poor. We have no brainstem reflexes that I can discern and she is not able to breathe in the vent at this time. She is on 20 mcg of fentanyl an hour for mild sedation, which was turned on to help her systolic pressures more than anything else, this can be stopped at any time, but unfortunately at this time, Ms. Ramos has a rather poor prognosis at here. Her condition may be terminal at this time. We will continue to assess over the next 24 hours. Job ID: [id number]
[2018-10-04] MEDS: Famotidine/PF 20 mg/2ml Vial SLOW IVP SCH (21:18)
[2018-10-05] MEDS: Insulin Regular 300 UNITS/3 ML VIAL SC PRN ×6 (00:27→23:57)
[2018-10-05] MEDS: Propofol 1,000 MG/100 ML VIAL IV PRN ×3 (01:50→21:07)
[2018-10-05] MEDS: Acetaminophen 1,000 MG in Premix Bag 1 BAG IVPB SCH ×5 (01:50→23:21)
[2018-10-05] MEDS: ceFAZolin 1 GM/D5W 1 GM in Premix Bag 1 BAG IVPB SCH ×2 (06:12→14:21)
[2018-10-05 06:16] LABS: Lactic Acid 1.5 mmol/L (0.5-2.2)
[2018-10-05 06:19] LABS: Anion Gap 11 mmol/L (10-20); BUN (Urea Nitrogen) 8 mg/dL (9.8-20.1); Calc. Creatinine Clearance 67 mL/min (70-130); Calcium 8.6 mg/dL (7.8-10.44); Carbon Dioxide 24 mmol/L (23-31); Chloride 116 mmol/L (98-107); Estimated GFR-MDRD 78; Glucose 170 mg/dL (83-110); Magnesium 1.9 mg/dL (1.6-2.6); Phosphorus 2.4 mg/dL (2.3-4.7); Potassium 3.3 mmol/L (3.5-5.1); Sodium 148 mmol/L (136-145)
[2018-10-05 06:39] LABS: Actual Bicarbonate (HCO3a) 23.2 mEq/L (22-28); Base Excess (BEa) -0.6 mEq/L (-2.0 to +3.0); Calcium, Ionized 1.14 mmol/L (1.12-1.30); Carboxyhemoglobin (COHb) 0.6 gm% (0.0-3.0); Hemoglobin (Hb) 11.5 g/dL (12.0-16.0); O2 Tension (PaO2) 78.1 mmHg (> 60.0); Potassium - ABG Lab 3.25 mmol/L (3.70-5.30); pH, Arterial 7.44 (7.35-7.45)
[2018-10-05 06:43] LABS: Puncture Site ALINE
[2018-10-05 07:06] LABS: Band 34 % (5-11); Hemoglobin 11.5 g/dL (12.0-16.0); Lymphocytes 18 % (21-51); MDiff Complete? YES; Mean Corpuscular Volume 94.2 fL (78.0-98.0); Mean Platelet Volume 10.1 fL (7.4-10.4); Monocytes 3 % (0-10); Neutrophil 45 % (42-75); Platelet Count 95 thou/uL (130-400); Platelet Morphology Comment Appears Decreased; RBC Distribution Width 12.2 % (11.5-14.5); White Blood Cell (WBC) Count 8.3 thou/uL (4.8-10.8)
[2018-10-05] MEDS: Sodium Chloride 0.9% 1,000 ML IV SCH (07:56)
[2018-10-05] MEDS ORDERED: Potassium Phosphate 30 MMOL in Sodium Chloride 0.9% 250 ML 250 ML IVPB SCH (08:45)
[2018-10-05] MEDS: Lactated Ringer's 1,000 ML IV SCH ×3 (08:58→23:58)
[2018-10-05] MEDS ORDERED: Magnesium 2 GM/50 ML 2 GM in Premix Bag 1 BAG IVPB SCH (09:00)
--- NOTE | 2018-10-05 09:01 | RAD ---
PORTABLE CHEST ONE VIEW: 10/05/2018 5:18 a.m. HISTORY: Respiratory failure. COMPARISON: Exam from the previous day. FINDINGS: Line and tube placements are unchanged in position. The heart size is stable. Bibasilar opacities a nd left pleural effusion are again seen. No pneumothoraces are identified. POS: [facility]
[2018-10-05] MEDS ORDERED: Digoxin 0.5 MG/2 ML AMP SLOW IVP SCH (10:45)
--- NOTE | 2018-10-05 10:58 | PRG ---
DATE OF SERVICE: 10/04/2018 SUBJECTIVE: The patient was seen today during evening rounds. Nursing reported no acute events. She is occasionally tachycardic and hypertensive, which resolves with a bolus of propofol. Otherwise, she has had no other episodes of hypotension since early this morning. OBJECTIVE: VITAL SIGNS: The patient is afebrile and hemodynamically stable. She is intermittently tachycardic. Urinary output is sufficient. GENERAL: Elderly female, lying in bed with no signs of acute distress. PULMONARY: Equal chest rise and fall, clear breath sounds bilaterally. No signs of acute respiratory distress. The patient is currently being mechanically ventilated. ABDOMEN: Soft, nontender, and nondistended. EXTREMITIES: 2+ pulses in all extremities. No significant swelling noted. NEUROLOGIC: GCS is 5T, motor is 3 and verbal is 1. The patient does have a cough. Pupils are nonreactive. ASSESSMENT: 1. Status post fall, on Coumadin and aspirin. 2. Left subdural hematoma with midline shift, status post left-sided hemicrani. 3. Left inferior pubic rami fracture. 4. History of hypertension, atrial fibrillation, diabetes, and hypothyroidism. 5. Continue propofol for sedation. Can start fentanyl drip if needed for pain control. Continue normal saline at 120 an hour. Tube feeds were started earlier today, but the patient did have a bout of emesis. Continue OG tube to low intermittent wall suction for now as she likely has an ileus. Continue to monitor her neurological function and SHADY drain outputs. Job ID: [id number]
--- NOTE | 2018-10-05 10:58 | PRG ---
DATE OF SERVICE: 10/04/2018 Ms. Ramos is now one day status post craniotomy for evacuation of a large left subdural hematoma. She has been in the ICU since her surgery, remains intubated, and in a state of coma. She has two drains, one of which is in the subdural space, second of which is in the subgaleal space. Both have provided substantial output since surgery. Her daughter is in the room with her, and I have updated her with respect to Ms. Ramos's neurologic status. I have indicated to her that her neurologic exam is very poor as is I believe her prognosis for any type of meaningful recovery. I did indicate that we should give her a little bit more time to see if trend develops in her neurologic state over the next 1 to 2 days. She is very understanding and asked questions. Neurosurgical service will continue to follow. Job ID: [id number]
[2018-10-05] MEDS: Piperacillin/Tazobactam 3.375 GM in Sodium Chloride 0.9% 100 ML IVPB SCH ×3 (11:13→23:24)
--- NOTE | 2018-10-05 12:20 | PRG ---
DATE OF SERVICE: 10/05/2018 Ms. Ramos is now postop day #2, following emergent left hemicraniectomy for subdural hematoma. Yesterday, her examination was essentially completely unresponsive; however today, she is withdrawing pain in her lower extremities with noxious stimuli to the bilateral upper extremities. Pupils are unequal, but unreactive, right measures about 4 mm and left about 2. She does have a cough reflex now over a brief event rarely. Pressures have been well controlled. Her temperature started to drop some, so a Yon Hugger has been applied. I still believe that unfortunately Ms. Ramos's prognosis is grave, but we will continue to track her neurologic examination over the next 24 to 48 hours. Job ID: [id number]
[2018-10-05] MEDS: hydrALAZINE 20 MG/ML VIAL SLOW IVP PRN (14:46)
[2018-10-05] MEDS ORDERED: Metoprolol Tartrate 25 MG TAB PER TUBE SCH ×2 (15:30→21:00)
[2018-10-05] MEDS: Digoxin 0.5 MG/2 ML AMP SLOW IVP SCH ×2 (15:35→23:24)
[2018-10-05] MEDS: Famotidine/PF 20 mg/2ml Vial SLOW IVP SCH (20:40)
[2018-10-05] MEDS: Metoprolol Tartrate 25 MG TAB PER TUBE SCH (20:41)
[2018-10-05] MEDS: CEFAZOLIN 1 GM, IV Admixture Fee-Chemo 1 UNITS in Sodium Chloride 0.9% 100 ML IVPB SCH (21:08)
--- NOTE | 2018-10-05 23:14 | PRG ---
DATE OF SERVICE: SUBJECTIVE: Patient was seen today during the evening rounds. She has been hemodynamically stable and still on the ventilator. Neuro exam has improved minimally with a GCS of 16. Cough reflex is still intact. She has not required any pressors. She was restarted on half of her home dose of metoprolol. Also, started on Zosyn today. Patient also received digoxin for her AFib. OBJECTIVE: VITAL SIGNS: Patient is afebrile, and hemodynamically stable. Heart rate is much better controlled today after starting metoprolol and digoxin. NEUROLOGIC: GCS is 60. Eyes, 1; verbal, 1; motor, 4. She still has a cough reflex. She has no purposeful movements in her extremities. GENERAL: Elderly female, intubated in bed with no signs of acute distress. PULMONARY: Equal chest rise and fall. Clear breath sounds bilaterally. No signs of acute pulmonary distress. CARDIAC: Regular rate. ABDOMEN: Soft, nontender, and nondistended. EXTREMITIES: 2+ pulses in all extremities. No significant swelling noted. No spontaneous movement at this time. ASSESSMENT: 1. Status post mechanical fall on Coumadin. 2. Left subdural hematoma with midline shift, status post left hemicrania. 3. Left inferior pubic rami fracture. 4. Hypernatremia. 5. Suspected aspiration pneumonia. 6. History of hypertension, atrial fibrillation, diabetes, and hypothyroidism. PLAN: Continue current dig and metoprolol. Continue Ancef and Zosyn. We will continue to monitor urinary output overnight, but will continue LR 120 an hour. Patient has been tolerating tube feeds, will continue at 20 an hour and will advance tomorrow if she tolerates that. We will also restart the patient's home levothyroxine at this time. Job ID: [id number]
[2018-10-06] MEDS: hydrALAZINE 20 MG/ML VIAL SLOW IVP PRN ×5 (01:02→23:46)
[2018-10-06 04:04] LABS: #Lymphocytes 0.7 thou/uL (1.20-3.40); #Monocytes 0.2 thou/uL (0.11-0.59); #Neutrophils 5.2 thou/uL (1.40-6.50); %Basophils 0.3 % (0.0-1.0); %Eosinophils 0.7 % (0.0-10.0); %Lymphocytes 11.6 % (21.0-51.0); %Monocytes 3.4 % (0.0-10.0); Hemoglobin 11.4 g/dL (12.0-16.0); Mean Corpuscular HGB CONC 33.9 g/dL (32.0-36.0); Mean Corpuscular Hemoglobin 32.3 pg (27.0-31.0); Mean Corpuscular Volume 95.3 fL (78.0-98.0); Mean Platelet Volume 10.5 fL (7.4-10.4); Platelet Count 109 thou/uL (130-400); RBC Distribution Width 12.3 % (11.5-14.5); Red Blood Cell (RBC) Count 3.52 mill/uL (4.20-5.40); White Blood Cell (WBC) Count 6.2 thou/uL (4.8-10.8)
[2018-10-06] MEDS: Insulin Regular 300 UNITS/3 ML VIAL SC PRN ×5 (04:06→20:31)
[2018-10-06 04:09] LABS: Anion Gap 12 mmol/L (10-20); BUN (Urea Nitrogen) 14 mg/dL (9.8-20.1); Calc. Creatinine Clearance 60 mL/min (70-130); Calcium 8.8 mg/dL (7.8-10.44); Carbon Dioxide 23 mmol/L (23-31); Chloride 116 mmol/L (98-107); Estimated GFR-MDRD 69; Glucose 202 mg/dL (83-110); Magnesium 2.4 mg/dL (1.6-2.6); Potassium 3.6 mmol/L (3.5-5.1); Sodium 147 mmol/L (136-145)
[2018-10-06 04:27] LABS: Digoxin 0.98 ng/mL (0.8-2.0)
[2018-10-06] MEDS: Acetaminophen 1,000 MG in Premix Bag 1 BAG IVPB SCH ×3 (05:07→17:49)
[2018-10-06] MEDS: Levothyroxine Sodium 125 MCG TAB PO SCH (05:07)
[2018-10-06] MEDS: CEFAZOLIN 1 GM, IV Admixture Fee-Chemo 1 UNITS in Sodium Chloride 0.9% 100 ML IVPB SCH ×3 (05:08→22:23)
[2018-10-06] MEDS: Piperacillin/Tazobactam 3.375 GM in Sodium Chloride 0.9% 100 ML IVPB SCH ×3 (05:08→17:49)
[2018-10-06] MEDS ORDERED: Potassium Phosphate 30 MMOL in Sodium Chloride 0.9% 500 ML IVPB SCH (05:15)
[2018-10-06 07:34] LABS: Actual Bicarbonate (HCO3a) 22.7 mEq/L (22-28); Base Excess (BEa) -1.8 mEq/L (-2.0 to +3.0); CO2 Tension 37.7 mmHg (35.0-45.0); Calcium, Ionized 1.14 mmol/L (1.12-1.30); Carboxyhemoglobin (COHb) 0.4 gm% (0.0-3.0); Hemoglobin (Hb) 11.7 g/dL (12.0-16.0); Potassium - ABG Lab 3.67 mmol/L (3.70-5.30)
[2018-10-06 07:38] LABS: O2 Tension (PaO2) 58.4 mmHg (> 60.0)
[2018-10-06 07:39] LABS: ALV-art Gradient 393.575 (0-20); Puncture Site LINE
[2018-10-06] MEDS: Metoprolol Tartrate 25 MG TAB PER TUBE SCH ×2 (08:19→20:01)
--- NOTE | 2018-10-06 09:14 | RAD ---
PORTABLE CHEST: HISTORY: Dyspnea. CCU followup. COMPARISON: 10/05/2018 FINDINGS: Hazy infiltrate in the right mid and lower lung. Hazy infiltrate and confluent infiltrate in the lef t perihilar region and left lower lung. The left hemidiaphragm is obscured, consistent with effusion and left basilar consolidation. ET tube, NG tube, and central lines are unchanged. IMPRESSION: Bilateral infiltrates, as described, probably not significantly changed from yesterday. POS: [facility]
--- NOTE | 2018-10-06 09:48 | PRG ---
DATE OF SERVICE: 10/06/2018 I met with Ms. Ramos and her daughter today. Ms. Ramos remains intubated in a state of coma. She does have some spontaneous movements in the lower extremities, but nothing is purposeful. Neurologically, she is essentially the same today as she was yesterday. She continues to have a poor prognosis. I did discuss with the daughter the need to consider level of care as we move forward over the next couple of days. I mentioned a plan toward withdrawal of care versus a more long-term care solution that would require a PEG and trach. She will discuss this in more detail with her family. We have removed the head dressing. The drains had minimal output and those can be removed as well. Her sodium is a little bit on the high side, but nothing that I feel needs correction at this point in time. Job ID: [id number]
[2018-10-06] MEDS: Ondansetron PF 4 MG/2 ML Vial IVP PRN (12:36)
[2018-10-06] MEDS: Lactated Ringer's 1,000 ML IV SCH (13:38)
[2018-10-06] MEDS: Propofol 1,000 MG/100 ML VIAL IV PRN (14:17)
[2018-10-06] MEDS: Famotidine/PF 20 mg/2ml Vial SLOW IVP SCH (20:01)
--- NOTE | 2018-10-06 21:03 | PRG ---
DATE OF SERVICE: 10/06/2018 SUBJECTIVE: The patient remains in the ICU. An 83-year-old female, ground level fall, on Coumadin. The patient remains on a ventilator. Neuro exam is unchanged. GCS remains E1, V1, M4, 60. The patient currently has bigeminy on the monitor. The patient remains afebrile. The patient had some low urinary output overnight and was given albumin. Neurosurgery, Dr. Garcia, met with the patient's daughter today, letting her know that her mother has a poor prognosis. They mentioned a plan for withdrawal of care versus more long-term care solution such as trach and PEG. The patient's head drains have been removed. OBJECTIVE: VITAL SIGNS: Blood pressure 148/62, CVP of 11, heart rate 85, respirations 21, SpO2 of 96% on a FiO2 of 70%, temperature 97.2. NEUROLOGIC: GCS 60, E1, V1, M4. Elderly-appearing female, on mechanical ventilator. The patient still has a cough reflex. PULMONARY: Equal chest rise and fall of chest. Bilateral breath sounds with mild rhonchi. CARDIAC: Regular rate. ABDOMEN: Soft, nontender, nondistended. EXTREMITIES: 2+ in distal extremities. No significant swelling. No purposeful movement. ASSESSMENT: 1. Status post mechanical fall, on Coumadin. 2. Left subdural hematoma with midline shift, status post left hemicraniectomy. 3. Left inferior pubic rami fracture. 4. Hypernatremia. 5. Suspected aspiration pneumonia. 6. History of hypertension, atrial fibrillation, diabetes, hypothyroidism. 7. Bigeminy. PLAN: Continue mechanical ventilation and supportive care. Continue to monitor urinary output and continue LR at 120 an hour. Continue tube feeds and advance as tolerated. Continue antibiotics. We will schedule q.6 DuoNeb as the patient has had some low SpO2. We will have nursing staff get the patient out of bed and into the neuro chair daily. The plan was discussed with Dr. Griffin, who agrees. Job ID: [id number]
[2018-10-06] MEDS ORDERED: Fentanyl 100 MCG/2 ML VIAL SLOW IVP SCH (23:59)
[2018-10-07] MEDS: Piperacillin/Tazobactam 3.375 GM in Sodium Chloride 0.9% 100 ML IVPB SCH ×5 (00:04→23:34)
[2018-10-07] MEDS: Acetaminophen 1,000 MG in Premix Bag 1 BAG IVPB SCH ×3 (00:05→23:33)
[2018-10-07] MEDS: Insulin Regular 300 UNITS/3 ML VIAL SC PRN ×5 (00:41→20:49)
[2018-10-07] MEDS: Lactated Ringer's 1,000 ML IV SCH ×3 (01:35→18:22)
--- NOTE | 2018-10-07 02:20 | PRG ---
DATE OF SERVICE: 10/06/2018 SUBJECTIVE: The patient was seen this evening in the ICU. She was hypertensive into the 180s and tachycardic into the 120s on my evaluation. Nursing reported also that she had an acute drop in oxygen saturation earlier in the evening. After some deep suctioning by respiratory therapy, her SpO2 has improved. The patient has Ofirmev for pain control at this time. During bout of hypertension and tachycardia, there is no physical signs of distress as the patient has traumatic brain injury. OBJECTIVE: VITAL SIGNS: The patient is normotensive outside of the occasional episodes of agitation. She is occasionally tachycardic as well, but that resolved. O2 saturation has improved to 94% to 95%. GENERAL: Elderly female, lying in bed with no signs of acute distress. NEUROLOGIC: GCS is 60, E1, V1, M4. Pupils are nonreactive bilaterally. PULMONARY: Equal chest rise and fall. Diminished breath sounds at the bases bilaterally. No signs of acute respiratory distress. The patient remains on mechanical ventilation. CARDIAC: Regular rate, but atrial fibrillation. ABDOMEN: Soft, nontender, and nondistended. EXTREMITIES: 2+ pulses in all extremities. No significant swelling noted. Gross motor and sensation are not able to be assessed at this time. ASSESSMENT: 1. Status post mechanical fall on Coumadin. 2. Left subdural hematoma with midline shift, status post left hemicranium. 3. Left inferior pubic rami fracture. 4. Aspiration pneumonia. 5. Acute traumatic pain. 6. History of hypertension, atrial fibrillation, diabetes, and hypothyroidism. PLAN: The patient was given 25 mcg of IV fentanyl once, which helped with her tachycardia and hypertension. It appears that the agitation is due to pain. We will place the patient on a fentanyl drip if she requires additional pain control. We will continue IV Ofirmev as well. Continue to watch patient's oxygen saturation closely at this time as she is increased risk for DVTs and PE. However, acute oxygen desaturation was likely due to aspiration pneumonia and increased secretions in her ET tube. Job ID: [id number]
[2018-10-07 04:27] VITALS: BMI 26.6
[2018-10-07 05:08] LABS: Anion Gap 9 mmol/L (10-20); BUN (Urea Nitrogen) 20 mg/dL (9.8-20.1); Calc. Creatinine Clearance 62 mL/min (70-130); Calcium 8.6 mg/dL (7.8-10.44); Carbon Dioxide 26 mmol/L (23-31); Chloride 114 mmol/L (98-107); Estimated GFR-MDRD 65; Glucose 230 mg/dL (83-110); Magnesium 2.2 mg/dL (1.6-2.6); Phosphorus 2.2 mg/dL (2.3-4.7); Potassium 3.4 mmol/L (3.5-5.1); Sodium 146 mmol/L (136-145)
[2018-10-07 05:16] LABS: Band 28 % (5-11); Eosinophils 7 % (0-10); Hemoglobin 10.2 g/dL (12.0-16.0); Lymphocytes 26 % (21-51); MDiff Complete? YES; Mean Corpuscular HGB CONC 32.9 g/dL (32.0-36.0); Mean Corpuscular Hemoglobin 31.7 pg (27.0-31.0); Mean Corpuscular Volume 96.5 fL (78.0-98.0); Mean Platelet Volume 10.4 fL (7.4-10.4); Monocytes 4 % (0-10); Neutrophil 35 % (42-75); Ovalocytes SLIGHT = 2-5 cells (100X) (0-1/hpf); Platelet Count 105 thou/uL (130-400); Platelet Morphology Comment Appears Decreased; RBC Distribution Width 12.5 % (11.5-14.5); Red Blood Cell (RBC) Count 3.21 mill/uL (4.20-5.40); White Blood Cell (WBC) Count 4.1 thou/uL (4.8-10.8)
[2018-10-07] MEDS: Levothyroxine Sodium 125 MCG TAB PO SCH (06:28)
[2018-10-07] MEDS: CEFAZOLIN 1 GM, IV Admixture Fee-Chemo 1 UNITS in Sodium Chloride 0.9% 100 ML IVPB SCH (06:28)
[2018-10-07] MEDS: Propofol 1,000 MG/100 ML VIAL IV PRN ×2 (06:30→20:48)
[2018-10-07 07:06] LABS: Actual Bicarbonate (HCO3a) 24.2 mEq/L (22-28); Base Excess (BEa) -0.8 mEq/L (-2.0 to +3.0); CO2 Tension 41.6 mmHg (35.0-45.0); Calcium, Ionized 1.16 mmol/L (1.12-1.30); Carboxyhemoglobin (COHb) 0.4 gm% (0.0-3.0); Hemoglobin (Hb) 10.2 g/dL (12.0-16.0); O2 Tension (PaO2) 85.6 mmHg (> 60.0); Potassium - ABG Lab 3.09 mmol/L (3.70-5.30); pH, Arterial 7.38 (7.35-7.45)
[2018-10-07 07:07] LABS: Puncture Site ALINE
[2018-10-07] MEDS ORDERED: Potassium Phosphate 30 MMOL in Sodium Chloride 0.9% 500 ML IVPB SCH (08:00)
[2018-10-07] MEDS ORDERED: Potassium Phosphate 30 MMOL in Sodium Chloride 0.9% 250 ML 250 ML IVPB SCH (08:15)
[2018-10-07] MEDS: Metoprolol Tartrate 25 MG TAB PER TUBE SCH ×2 (08:20→20:49)
--- NOTE | 2018-10-07 09:09 | RAD ---
CHEST 1 VIEW: HISTORY: Aspiration pneumonia. COMPARISON: 10/06/2018. FINDINGS: Life support tubes in place and stable. Bilateral patchy interstitial and alveolar opacity changes, particularly in the perihilar regions and mid lung zones and lower lung zones showing little change f rom prior study, but definite worsening when compared to the 10/05/2018 study. IMPRESSION: Extensive bilateral interstitial and alveolar opacity changes throughout both lungs, particularly the mid lung zones, perihilar regions, and lower lung zones, somewhat worse on the left side. Continue short-term followup. POS: [facility]
[2018-10-07] MEDS: Insulin Glargine 10 UNITS in Pre-Filled Syringe 1 EACH SC SCH (09:40)
--- NOTE | 2018-10-07 09:55 | PRG ---
DATE OF SERVICE: 10/05/2018 SUBJECTIVE: This is an 83-year-old woman, who is post injury day #2, status post ground level fall. The patient suffered a large left convexity subdural hematoma with significant left to right midline shift. The patient required an emergent craniectomy with evacuation of the large subdural hematoma. The patient remains on full mechanical ventilator support. The patient is currently on propofol. Urinary output has been adequate. GCS is noted to be 6. The patient is withdrawing in lower extremities only. Continues to have extension with bilateral upper extremities. Pupils are unequal and nonreactive. Right pupil 4 mm and left 3 mm. The patient currently with a Yon Hugger in place as the patient has been slightly hypothermic. Urinary output has been adequate. The patient's daughter is currently at bedside and has been updated on the patient's condition. OBJECTIVE: VITAL SIGNS: Heart rate 106, blood pressure 138/72, respirations 12 , SpO2 of 96% on 70% FiO2, temperature 96.1. CVP 6. HEENT: Pupils unequal, round, nonreactive. Right pupil 4 mm and left 3 mm. NECK: No JVD. HEART: Irregular rate. Irregular rhythm. Mildly tachycardic. LUNGS: Bibasilar rhonchi. ABDOMEN: Soft, nontender, nondistended. EXTREMITIES: 2+ radial and pedal pulses bilateral. No ankle edema. NEUROLOGIC: [id number]. LABORATORY DATA: WBC 8.3, RBC 3.60, hemoglobin 11.5, hematocrit 33.9, platelets 95, bands 34, lymphocytes 18. Sodium 148, potassium 3.3, chloride 116, carbon dioxide 24, anion gap 11, BUN 8, creatinine 0.71, estimated GFR 78, glucose 170, calcium 8.6, phosphorus 2.4, magnesium 1.9. ABG: PH 7.44, pCO2 of 35.0, PO2 of 78, base excess -0.6, bicarb 23.2 IMAGING STUDIES: Chest x-ray: Bibasilar opacities and left pleural effusion are again seen. No known pneumothoraces are identified. IMPRESSION: 1. Post injury day #2, status post ground level fall with large left convex base subdural hematoma. 2. Postop day #2, status post emergent craniectomy and evacuation of large left subdural hematoma. 3. Acute post traumatic respiratory failure. 4. Acute hyperglycemia, history of diabetes. 5. Hypernatremia. 6. Hypokalemia. 7. Bandemia. PLAN: 1. Continue full mechanical ventilator support until the patient is neurologically stable. We will continue to optimize glucose control with insulin. Continue nonpharmacological VTE prophylaxis due to the patient's relative contraindication to chemical VTE prophylaxis. We will start the patient on antibiotics for bandemia. 2. We will replace electrolytes. We will change the patient's IV fluids to lactated Ringer's as the patient is hypernatremic and hypokalemic. We will monitor the patient's hypernatremia and increase free water flushes. We will restart the patient's metoprolol at half dose twice a day as the patient remains in atrial fib with increased rate. The plan was discussed with the daughter at bedside, who agrees. The plan was discussed with Dr. Griffin, who agrees. Job ID: [id number] MTDD
[2018-10-07] MEDS: Famotidine/PF 20 mg/2ml Vial SLOW IVP SCH ×2 (10:38→20:48)
--- NOTE | 2018-10-07 11:58 | CT ---
CT BRAIN NONCONTRAST: DATE: 10/07/2018 10:59 AM HISTORY: 83-year-old female status post craniotomy for subdural hematoma. Follow-up intracranial hemorrhage. Dr. Jasso discussed the obstructive hydrocephalus by telephone with Dr. Griffin at 11:45 AM on 10/07/2018 COMPARISON: 10/03/2018 FINDINGS: There are new left pterional craniotomy changes. The underlying large left supratentorial subdural he matoma is no longer present. There has been interval resolution of the previously demonstrated cyst severe subfalcine herniation and uncal herniation, with return of septum pellucidum to midline. However, there is a new finding of moderate to severe dilation of the lateral ventricles bilaterally, and moderate dilation of the third ventricle. The multifocal intra-axial hemorrhage involving the andrew diffusely, plus the hematoma involving the left side of the andrew and left middle cerebellar pedu ncle, have become larger. Furthermore, the intra-axial brainstem hematoma has now extended superiorly to involve the midbrain extensively. There continues to be severe circumferential effaceme nt of the ambient, perimesencephalic cistern. There is moderate narrowing of the fourth ventricle with encroachment by the mass effect and some intraventricular hemorrhage. There is diffuse effacement of the cerebral sulci representing increased intracranial pressure. There is a thin left frontal intracranial pressure measuring catheter entering through left yaya hole. Bravo-white junction is preserved. Diffuse low-attenuation throughout the cerebral white matter repres ents severe chronic ischemic white matter changes. There are scattered tiny amounts of subarachnoid hemorrhage laterally bilaterally between cerebral sulci. IMPRESSION: 1. Significant interval worsening of the extensive, now severe brainstem hemorrhage. 2. 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 3. Status post evacuation of the previously demonstrated large left subdural hematoma via left fronto parietal craniotomy, resulting in the severe subfalcine and uncal herniation. 4. Mild subarachnoid hemorrhage.
[2018-10-07] MEDS ORDERED: Lidocaine 1% w/Epinephrine 1:100K 20 ML VIAL ONE (12:12)
--- NOTE | 2018-10-07 15:01 | PRG ---
DATE OF SERVICE: 10/07/2018 SUBJECTIVE: Ms. Ramos is an 83-year-old woman, who is post injury day #4, status post ground level fall. The patient suffered large left traumatic subdural hematoma, which required emergent craniectomy with evacuation. She remains in coma today. Off sedation. Yue Coma Scale is noted at E1, M4, V1T. She tolerates tube feeds at goal. OBJECTIVE: VITAL SIGNS: This morning include blood pressure 131/65, pulse is 86, respiratory rate is 12, temperature is 97.6 degrees Fahrenheit, oxygen saturation 93% on FiO2 of 70%. HEENT: Pupils are equal and reactive to light at 4 mm. NECK: She has no jugular venous distention noted. HEART: Reveals regular rate and rhythm. No murmurs or gallops auscultated. LUNGS: Reveal bibasilar rhonchi. Breathing regular and nonlabored. EXTREMITIES: Reveal 2+ radial and pedal pulses bilaterally. No ankle edema is present. LABORATORY FINDINGS: Today include a CBC with 4,100 of white blood cells, hemoglobin and hematocrit of 10.2 and 31.0 respectively. Platelet count is 105,000. Differential counts as follows; 35 neutrophils, 28 bands, 26 lymphocytes, 4 monocytes, and 7 eosinophils. Metabolic profile; sodium 146, potassium 3.4, chloride is 114, bicarb is 26, BUN is 20, creatinine 0.83, glucose 230, magnesium 2.2, and phosphorus is 2.2. I have personally reviewed the repeat CT scan of the brain. This is significant for brainstem hemorrhage with significant obstructive hydrocephalus. Good evacuation of the previously noted left subdural hematoma is noted. There is residual small subarachnoid hemorrhage. IMPRESSION: 1. Post injury day #4, status post traumatic left subdural hematoma, status post evacuation. 2. Brainstem hemorrhage with obstructive hydrocephalus. 3. Acute posttraumatic respiratory failure. 4. Acute hypokalemia. 5. Acute hypophosphatemia. PLAN: 1. Discussed with Neurosurgery and external ventriculostomy drain is being contemplated. 2. Continue with full mechanical ventilator support until the patient is neurologically stable. 3. Correct abnormal electrolytes. 4. We will consider diagnostic and possibly therapeutic bronchoscopy following EVD placement as the patient does have bilateral pulmonary infiltrates on repeat chest x-ray today. Also, noted is copious amount of tracheal secretions upon suctioning. Above findings and plan discussed with the patient's and daughter at bedside. They indicated understanding of the information given. I have answered their questions. Total critical care time is 50 minutes. Job ID: [id number]
[2018-10-07 15:28] LABS: Actual Bicarbonate (HCO3a) 23.6 mEq/L (22-28); Analyzer IN Cardio OR; Base Excess (BEa) 0.3 mEq/L (-2.0 to +3.0); CO2 Tension 34.4 mmHg (35.0-45.0); Calcium, Ionized 1.13 mmol/L (1.12-1.30); Carboxyhemoglobin (COHb) 1.4 gm% (0.0-3.0); Hemoglobin (Hb) 14.6 g/dL (12.0-16.0); O2 Tension (PaO2) 120.8 mmHg (> 60.0); Potassium - ABG Lab 3.85 mmol/L (3.70-5.30); pH, Arterial 7.45 (7.35-7.45)
[2018-10-07 15:29] LABS: Puncture Site ALINE
[2018-10-08] MEDS: Insulin Regular 300 UNITS/3 ML VIAL SC PRN ×5 (00:22→19:48)
--- NOTE | 2018-10-08 00:40 | PRG ---
DATE OF SERVICE: 10/07/2018 SUBJECTIVE: The patient was seen today during evening rounds. She was resting comfortably, intubated in the ICU. CT scan completed today demonstrated brainstem hemorrhage with obstructive hydrocephalus. Dr. Garcia was updated who placed an external ventricular drain. At the time of my evaluation, she was hemodynamically stable and saturating 95% on 70% FiO2 mechanical ventilation. Nursing reported adequate urinary output and no signs of agitation or restlessness. OBJECTIVE: VITAL SIGNS: The patient has been afebrile and hemodynamically stable. Systolic blood pressure in the one teens to 150s, heart rate in the 80s. O2 saturation between 93% and 99%. GENERAL: Elderly female, lying in bed with no signs of acute distress. PULMONARY: Equal chest rise and fall. Clear breath sounds bilaterally, but diminished at the lower bases. ET tube in place with no secretions in tube. CARDIAC: Regular rate and rhythm. ABDOMEN: Soft, nontender, nondistended. EXTREMITIES: 2+ pulses in all extremities. Mild swelling to bilateral hands, but no swelling to lower's. NEUROLOGIC: GCS is 16. Eyes 1, verbal 1, motor 4. The patient has no purposeful movements and pupils are unequal and unreactive. ASSESSMENT: 1. Status post mechanical fall, on Coumadin and aspirin. 2. Left subdural hematoma with midline shift, status post left hemicranium. 3. Left inferior pubic rami fracture. 4. Brainstem hemorrhage with obstructive hydrocephalus, status post external ventricular drain placement. 5. Aspiration pneumonia. 6. History of hypertension, atrial fibrillation, diabetes, and hypothyroidism. PLAN: Continue current diet with tube feeds that are currently at goal. Continue sedation with propofol, p.r.n. fentanyl was added for additional pain control. Continue to monitor output from external ventricular drain. Job ID: [id number] [facility]
[2018-10-08] MEDS: Lactated Ringer's 1,000 ML IV SCH ×3 (01:48→16:41)
[2018-10-08 04:11] LABS: Anion Gap 9 mmol/L (10-20); BUN (Urea Nitrogen) 23 mg/dL (9.8-20.1); Calc. Creatinine Clearance 67 mL/min (70-130); Calcium 8.7 mg/dL (7.8-10.44); Carbon Dioxide 25 mmol/L (23-31); Chloride 114 mmol/L (98-107); Estimated GFR-MDRD 71; Glucose 220 mg/dL (83-110); Magnesium 2.3 mg/dL (1.6-2.6); Phosphorus 2.2 mg/dL (2.3-4.7); Potassium 3.4 mmol/L (3.5-5.1); Sodium 145 mmol/L (136-145)
[2018-10-08 04:48] LABS: Band 11 % (5-11); Burr Cells MODERATE= 6-15 cells (100X) (0-1/hpf); Eosinophils 6 % (0-10); Hemoglobin 9.7 g/dL (12.0-16.0); Lymphocytes 26 % (21-51); MDiff Complete? YES; Mean Corpuscular HGB CONC 33.5 g/dL (32.0-36.0); Mean Corpuscular Volume 95.6 fL (78.0-98.0); Mean Platelet Volume 9.9 fL (7.4-10.4); Monocytes 3 % (0-10); Myelocyte 3 % (0-0); Neutrophil 49 % (42-75); Nucleated RBC 1 % (0); Platelet Count 96 thou/uL (130-400); RBC Distribution Width 12.5 % (11.5-14.5); Red Blood Cell (RBC) Count 3.01 mill/uL (4.20-5.40); White Blood Cell (WBC) Count 4.2 thou/uL (4.8-10.8)
[2018-10-08] MEDS: Acetaminophen 1,000 MG in Premix Bag 1 BAG IVPB SCH (06:22)
[2018-10-08] MEDS: Levothyroxine Sodium 125 MCG TAB PO SCH (06:23)
[2018-10-08] MEDS: hydrALAZINE 20 MG/ML VIAL SLOW IVP PRN ×2 (06:23→10:32)
[2018-10-08] MEDS: Piperacillin/Tazobactam 3.375 GM in Sodium Chloride 0.9% 100 ML IVPB SCH ×4 (06:24→23:32)
[2018-10-08] MEDS: Metoprolol Tartrate 25 MG TAB PER TUBE SCH ×2 (06:44→20:55)
[2018-10-08] MEDS: Propofol 1,000 MG/100 ML VIAL IV PRN (06:59)
[2018-10-08] MEDS ORDERED: Potassium Phosphate 30 MMOL in Sodium Chloride 0.9% 250 ML 250 ML IVPB SCH (07:30)
[2018-10-08 07:33] LABS: Actual Bicarbonate (HCO3a) 31.8 mEq/L (22-28); Base Excess (BEa) 0.8 mEq/L (-2.0 to +3.0); CO2 Tension 93.5 mmHg (35.0-45.0); pH, Arterial 7.15 (7.35-7.45)
[2018-10-08 07:34] LABS: Calcium, Ionized 1.16 mmol/L (1.12-1.30); Carboxyhemoglobin (COHb) 0.9 gm% (0.0-3.0); Hemoglobin (Hb) 11.5 g/dL (12.0-16.0); Potassium - ABG Lab 4.94 mmol/L (3.70-5.30); Puncture Site RRA
[2018-10-08 07:35] LABS: ALV-art Gradient 294.225 (0-20)
[2018-10-08] MEDS: Famotidine/PF 20 mg/2ml Vial SLOW IVP SCH ×2 (08:04→20:55)
--- NOTE | 2018-10-08 08:17 | RAD ---
XR Chest 1 View Portable History: Pneumonia Comparison: Radiograph prior day Findings: Perihilar opacities is slightly increased. Moderate effusions. No pneumothorax. Enteric tube tip below diaphragm although out of field of view. Endotracheal tube tip somewhat obscur ed although felt to reside just below the level of the clavicles. Central venous catheter tip is similar. No acute osseous abnormality. Impression: Slight worsening perihilar opacities suggesting progressive edema.
[2018-10-08 08:25] LABS: Actual Bicarbonate (HCO3a) 22.1 mEq/L (22-28); Base Excess (BEa) 0.6 mEq/L (-2.0 to +3.0); Calcium, Ionized 1.15 mmol/L (1.12-1.30); Carboxyhemoglobin (COHb) 0.7 gm% (0.0-3.0); O2 Tension (PaO2) 67.2 mmHg (> 60.0); Potassium - ABG Lab 3.18 mmol/L (3.70-5.30)
[2018-10-08] MEDS: Insulin Glargine 10 UNITS in Pre-Filled Syringe 1 EACH SC SCH (08:34)
[2018-10-08] MEDS ORDERED: Morphine 2 MG/ML SYRINGE SLOW IVP PRN (09:49)
[2018-10-08 09:53] LABS: Actual Bicarbonate (HCO3a) 22.5 mEq/L (22-28); Calcium, Ionized 1.14 mmol/L (1.12-1.30); Carboxyhemoglobin (COHb) 0.6 gm% (0.0-3.0); Hemoglobin (Hb) 10.5 g/dL (12.0-16.0); O2 Tension (PaO2) 80.7 mmHg (> 60.0); Potassium - ABG Lab 3.28 mmol/L (3.70-5.30)
[2018-10-08 09:57] LABS: pH, Arterial 7.56 (7.35-7.45)
[2018-10-08 09:58] LABS: ALV-art Gradient 400.025 (0-20); CO2 Tension 25.5 mmHg (35.0-45.0); Puncture Site RRA
[2018-10-08 10:00] LABS: Puncture Site RRA; pH, Arterial 7.56 (7.35-7.45)
[2018-10-08] MEDS: Acetaminophen 650 MG/20.3 ML UDCUP PER TUBE SCH ×3 (10:33→23:32)
[2018-10-08] MEDS: Morphine 4 MG/ML VIAL SLOW IVP PRN ×2 (10:52→13:23)
--- NOTE | 2018-10-08 11:15 | PRG ---
DATE OF SERVICE: 10/08/2018 SUBJECTIVE: Ms. Ramos is postoperative day #5, status post emergent craniectomy to evacuate large left convexity subdural hematoma. She is postop day #1, status post EVD placement to treat acute obstructive hydrocephalus. The patient remains in deep coma, although today she is having more spontaneous movements of the lower extremities. Her Yue Coma Scale nevertheless is remained at E1, M4, V1T. She is tolerating tube feeds at goal. ICP remains less than 10 since placement of the EVD yesterday. OBJECTIVE: VITAL SIGNS: Today include blood pressure 143/72, pulse is 75, respiratory rate is 20, temperature is 98 degrees Fahrenheit, and oxygen saturation 98% on FiO2 of 70%. HEENT: Pupils are equal, round, and reactive to light at 3 mm bilaterally. NECK: She has no jugular venous distention noted. HEART: Reveals regular rate and rhythm. No murmurs or gallops auscultated. LUNGS: Reveal bibasilar rhonchi. Breathing, regular and nonlabored. ABDOMEN: Soft, nontender, and nondistended. EXTREMITIES: Reveal 2+ radial and pedal pulses bilaterally. She has trace bilateral ankle edema present. LABORATORY FINDINGS: Today include a CBC with 4200 white blood cells, hemoglobin and hematocrit 9.7 and 28.8 respectively. Platelet count is 96,000. Differentials; 49 neutrophils, 11 bands, 26 lymphocytes, 3 monocytes, and 6 eosinophils. Metabolic profile; sodium 145, potassium 3.4, chloride is 114, bicarb is 25, BUN 23, creatinine is 0.77, glucose is 220, magnesium 2.3, and phosphorus is 2.2. Arterial blood gas: PH 7.56, pCO2 is 26, PO2 is 81, oxygen saturation 97%, and base excess is 1.0. IMPRESSIONS: 1. Postoperative day #5, status post emergent left craniectomy and evacuation of large left subdural hematoma. 2. Postop day #1, status post EVD placement to treat acute obstructive hydrocephalus. 3. Acute hypokalemia. 4. Acute hypophosphatemia. PLAN: 1. Increase activity per Physical and Occupational Therapy. 2. Correct abnormal electrolytes. 3. Obtain sputum for culture and sensitivity to rule out aspiration pneumonia. 4. Continue with full mechanical ventilator support to treat acute posttraumatic respiratory failure. 5. We will revise ventilator settings to treat iatrogenic respiratory alkalosis. Above findings and plan discussed with the patient's and adult daughter at bedside. They indicated understanding of the information given. I answered their questions. Total critical care time is 45 minutes. Job ID: [id number]
--- NOTE | 2018-10-08 15:28 | PRG ---
DATE OF SERVICE: 10/08/2018 TIME OF ENCOUNTER: 0630 hours this morning. Ms. Ramos is still stable neurologically. Her EVD that was placed yesterday afternoon is draining roughly 2 to 6 mL an hour. I still feel like her prognosis is grave and likely terminal at this point. We will discuss with Dr. Garcia. Job ID: [id number]
--- NOTE | 2018-10-08 16:14 | PRG ---
DATE OF SERVICE: 10/08/2018 Ms. Ramos is known to me for emergent evacuation of a large subdural hematoma. Yesterday, she had a CT scan performed, which revealed the presence of hydrocephalus. A ventriculostomy was placed uneventfully. The CT scan performed yesterday also revealed the presence of what are likely to be Duret hemorrhages within the brainstem, which are more evident at this point in time since the mass effect and midline shift of the fist CT scan have resolved. She continues to have a very poor neurologic exam. She remains in a state of coma and is not responsive to stimulation. She does exhibit spontaneous movements, none of which are purposeful. I met with her daughter today to summarize her treatment plan today as well as most recent imaging. I indicated to the daughter that I believe Ms. Ramos's likelihood for a meaningful recovery is extraordinarily low. I do not believe that if she survives she will become functionally independent. I am doubtful that she will even awaken. The daughter has made it clear that her mother as well as her father, all are in agreement based on prior conversations that she does not want sustained artificial life support. They are most likely inclined to move forward with comfort care measures and extubation. She has asked (the daughter) that I speak with the father tomorrow morning, and I will do so. At that time, I anticipate a move towards withdrawal of care. Job ID: [id number] [facility]
[2018-10-08] MEDS ORDERED: Hydrocortisone Sod Succ/PF 100 mg/2 ml Vial IVP SCH (17:30)
[2018-10-08] MEDS: Amantadine HCl 100 mg Capsule PO SCH (20:55)
--- NOTE | 2018-10-08 22:40 | EKG ---
Test Reason : STAT Blood Pressure : / mmHG Vent. Rate : 140 BPM Atrial Rate : 138 BPM P-R Int : 000 ms QRS Dur : 076 ms QT Int : 278 ms P-R-T Axes : 000 014 056 degrees QTc Int : 424 ms Atrial fibrillation with rapid ventricular response Nonspecific T wave abnormality Abnormal ECG When compared with ECG of 03-OCT-2018 19:47, (Unconfirmed) Vent. rate has increased BY 60 BPM Nonspecific T wave abnormality now evident in Inferior leads Nonspecific T wave abnormality now evident in Lateral leads Confirmed by Samson LYONS ([id number]) on 10/08/2018 10:40:11 PM Referred By: RAGHAV Confirmed By:Samson LYONS
[2018-10-09] MEDS: Insulin Regular 300 UNITS/3 ML VIAL SC PRN ×3 (00:01→09:20)
--- NOTE | 2018-10-09 00:18 | PRG ---
DATE OF SERVICE: 10/08/2018 SUBJECTIVE: Ms. Ramos is an 83-year-old female. After a ground level fall, she sustained a large subdural hematoma. She underwent emergent evacuation and postop, she remained in deep coma and not responsive with stimulation. She is on ventilation with no sedation medication. Per Dr. Garcia, neurosurgeon, her chance of recovery is very low and Dr. Garcia has been talking with the patient's daughter today on her poor prognosis and discussed with patient's family about her care moving forward. Family members desire Dr. Garcia will talk with the patient's son-in-law tomorrow morning on the final decision on moving forward with her comfort care and extubation. OBJECTIVE: The patient is still on ventilation in deep coma with no response with stimulation. VITAL SIGNS: Stable. LUNGS: Clear bilaterally. HEART: Regular rate and rhythm. ABDOMEN: Soft, nondistended. Pupils are dilated, thin, nonreactive. PLAN: Continue supportive care. Dr. Garcia will talk with the patient's family again tomorrow to make the final decision aided to move forward with comfort care of the patient and withdrawn ventilation. Job ID: [id number] [facility]
[2018-10-09] MEDS: Lactated Ringer's 1,000 ML IV SCH (03:48)
[2018-10-09 04:30] LABS: Anion Gap 13 mmol/L (10-20); BUN (Urea Nitrogen) 26 mg/dL (9.8-20.1); Calc. Creatinine Clearance 64 mL/min (70-130); Calcium 8.7 mg/dL (7.8-10.44); Carbon Dioxide 25 mmol/L (23-31); Chloride 112 mmol/L (98-107); Estimated GFR-MDRD 64; Glucose 295 mg/dL (83-110); Magnesium 2.3 mg/dL (1.6-2.6); Potassium 4.5 mmol/L (3.5-5.1); Sodium 145 mmol/L (136-145)
[2018-10-09 04:31] LABS: Band 16 % (5-11); Hemoglobin 10.1 g/dL (12.0-16.0); Lymphocytes 11 % (21-51); MDiff Complete? YES; Mean Corpuscular HGB CONC 33.9 g/dL (32.0-36.0); Mean Corpuscular Hemoglobin 32.3 pg (27.0-31.0); Mean Corpuscular Volume 95.4 fL (78.0-98.0); Mean Platelet Volume 10.6 fL (7.4-10.4); Neutrophil 73 % (42-75); Nucleated RBC 3 % (0); Platelet Count 109 thou/uL (130-400); Platelet Morphology Comment Appears Decreased; RBC Distribution Width 12.8 % (11.5-14.5); Red Blood Cell (RBC) Count 3.14 mill/uL (4.20-5.40); White Blood Cell (WBC) Count 5.3 thou/uL (4.8-10.8)
[2018-10-09] MEDS: Piperacillin/Tazobactam 3.375 GM in Sodium Chloride 0.9% 100 ML IVPB SCH ×2 (05:36→11:20)
[2018-10-09] MEDS: Acetaminophen 650 MG/20.3 ML UDCUP PER TUBE SCH ×2 (05:39→11:22)
[2018-10-09] MEDS: Levothyroxine Sodium 125 MCG TAB PO SCH (05:42)
[2018-10-09] MEDS ORDERED: Hydrocortisone Sod Succ/PF 100 mg/2 ml Vial IVP SCH (06:00)
[2018-10-09 07:16] LABS: Actual Bicarbonate (HCO3a) 25.3 mEq/L (22-28); Base Excess (BEa) 0.6 mEq/L (-2.0 to +3.0); CO2 Tension 40.8 mmHg (35.0-45.0); Calcium, Ionized 1.16 mmol/L (1.12-1.30); Carboxyhemoglobin (COHb) 0.7 gm% (0.0-3.0); Hemoglobin (Hb) 11.3 g/dL (12.0-16.0); O2 Tension (PaO2) 67.1 mmHg (> 60.0); Potassium - ABG Lab 4.13 mmol/L (3.70-5.30); pH, Arterial 7.41 (7.35-7.45)
[2018-10-09 07:18] LABS: Puncture Site RRA
[2018-10-09] MEDS ORDERED: Famotidine 20 MG TAB PER TUBE SCH (09:00)
[2018-10-09] MEDS: Metoprolol Tartrate 25 MG TAB PER TUBE SCH (09:16)
[2018-10-09] MEDS: Insulin Glargine 10 UNITS in Pre-Filled Syringe 1 EACH SC SCH (09:18)
[2018-10-09] MEDS: Amantadine HCl 100 mg Capsule PO SCH (09:19)
[2018-10-09 10:08] VITALS: BP 175/61
--- NOTE | 2018-10-09 10:11 | PRG ---
DATE OF SERVICE: 10/09/2018 I met with Ms. Ramos's family this morning. Neurologically, she is unchanged and her prognosis remains grave. I did explain to all the family members that this is an injury from which I do not believe she will recover. She is currently in a state of coma with a very poor neurologic exam and evidence of brainstem hemorrhage on her CT scans. They are all in agreement that this is not a form of care that the patient would wish to have. They are anticipating the arrival of one additional family member, after which time I will plan to move towards withdrawal of care and comfort care measures only. Job ID: [id number]
--- NOTE | 2018-10-09 11:22 | PRG ---
DATE OF SERVICE: 10/09/2018 Ms. Ramos is an 83-year-old woman, who sustained acute severe traumatic brain injury with large left convexity subdural hematoma, requiring an emergent craniectomy and evacuation of the subdural hematoma. The patient remains in deep coma. Neurosurgery discussed with the patient's and daughter this morning. Family had elected comfort care measures pending the arrival of another daughter. The patient's and daughter indicated to me as well that it will not be the patient's wishes to be placed on life support, especially given she has severe traumatic brain injury with poor prognosis for any meaningful recovery. I do agree with the plan to extubate the patient to comfort care measures only. The patient's family indicated the understanding that post extubation this will certainly lead to this patient's demise. We will continue mechanical ventilator support pending the arrival of the daughter, at which time the patient will be extubated. Job ID: [id number]
[2018-10-09 14:03] VITALS: TEMP 97.6
--- NOTE | 2018-10-11 08:10 | DIS ---
DATE OF ADMISSION: 10/03/2018 DATE OF DISCHARGE: 10/09/2018 [employer] TE[employer]ER: Dr. Sánchez Garcia with Neurosurgery. DIAGNOSES ON ADMISSION: 1. Status post ground level fall. 2. Acute severe traumatic brain injury with left convexity subdural hematoma and significant midline shift. 3. Severe cerebral edema. 4. Acute posttraumatic respiratory failure. 5. Warfarin-induced coagulopathy. 6. Acute hypomagnesemia. 7. Acute hypocalcemia. DIAGNOSES ON DISCHARGE: 1. Status post ground level fall. 2. Acute severe traumatic brain injury with left convexity subdural hematoma and significant midline shift. 3. Severe cerebral edema. 4. Acute posttraumatic respiratory failure. 5. Warfarin-induced coagulopathy. 6. Acute hypomagnesemia. 7. Acute hypocalcemia. 8. Acute cardiopulmonary arrest. OPERATIONS AND PROCEDURES: 1. Emergent left craniectomy with evacuation of a large left subdural hematoma on 10/03/2018. 2. Placement of right radial arterial catheter by Dr. Griffin. 3. Placement of external ventriculostomy drain on 10/08/[address] Garcia. HISTORY/HOSPITAL COURSE: An 83-year-old woman who suffered a ground level fall while on warfarin therapy. The patient suffered a devastating large left convexity subdural hematoma with severe cerebral edema requiring emergent craniectomy on the day of admission. The patient failed to rally with regard to her neurological function. On 10/08/2018, repeat CT scan of the brain revealed acute obstructive hydrocephalus and an external ventriculostomy drain was placed. Next day, the patient remained in deep coma. There is a new hemorrhage in the brainstem noted. She remained with a Yue Coma Scale of less than 6 the entire time. A family conference was completed by Neurosurgery, present was the patient's and adult daughter. The entire care including the patient's prognosis was reviewed. At that time, it was the wish of the patient's and adult daughter that comfort care measures be pursued as the patient had no chance of any meaningful recovery. The patient's family was made aware that extubation will certainly lead to the patient's demise. It was their wish that no further heroic measures be continued. The patient was ultimately extubated once the 2nd daughter arrived. The patient was ultimately extubated at 1304 hours and went into asystole at 1331 hours. She was pronounced at that time with family at bedside. Job ID: [id number]
== END 2018-10-09 13:31 | disposition expired | DRG 955 ==
LOC: ERS 18:44 → CCU 20:03 → SDC/OP 20:28 → CCU 21:55
PROVIDERS: ADMIT Surgery; ATTEND Surgery
PROC: 03HY32Z Insertion of Monitoring Device into Upper Artery, Percutaneous Approach (ICD-10-PCS; principal; 2018-10-03)
PROC: 4A133B1 Monitoring of Arterial Pressure, Peripheral, Percutaneous Approach (ICD-10-PCS; 2018-10-03)
PROC: 4A133J1 Monitoring of Arterial Pulse, Peripheral, Percutaneous Approach (ICD-10-PCS; 2018-10-03)
PROC: 00C40ZZ Extirpation of Matter from Intracranial Subdural Space, Open Approach (ICD-10-PCS; 2018-10-03)
PROC: 5A1955Z Respiratory Ventilation, Greater than 96 Consecutive Hours (ICD-10-PCS; 2018-10-03)
PROC: 0BH17EZ Insertion of Endotracheal Airway into Trachea, Via Natural or Artificial Opening (ICD-10-PCS; 2018-10-03)
PROC: 009630Z Drainage of Cerebral Ventricle with Drainage Device, Percutaneous Approach (ICD-10-PCS; 2018-10-08)
DX: S06.5X0A Traumatic subdural hemorrhage without loss of consciousness, initial encounter (principal); S32.592A Other specified fracture of left pubis, initial encounter for closed fracture; J96.00 Acute respiratory failure, unspecified whether with hypoxia or hypercapnia; S06.1X0A Traumatic cerebral edema without loss of consciousness, initial encounter; J69.0 Pneumonitis due to inhalation of food and vomit; D68.318 Other hemorrhagic disorder due to intrinsic circulating anticoagulants, antibodies, or inhibitors; E87.2 Acidosis; K56.7 Ileus, unspecified; E87.0 Hyperosmolality and hypernatremia; G91.3 Post-traumatic hydrocephalus, unspecified; Z51.5 Encounter for palliative care; E83.39 Other disorders of phosphorus metabolism; E87.6 Hypokalemia; E83.51 Hypocalcemia; E11.65 Type 2 diabetes mellitus with hyperglycemia; I95.9 Hypotension, unspecified; I48.2 Chronic atrial fibrillation; W01.0XXA Fall on same level from slipping, tripping and stumbling without subsequent striking against object, initial encounter; R40.2212 Coma scale, best verbal response, none, at arrival to emergency department; E03.9 Hypothyroidism, unspecified; R40.2342 Coma scale, best motor response, flexion withdrawal, at arrival to emergency department; R40.2112 Coma scale, eyes open, never, at arrival to emergency department; I10 Essential (primary) hypertension; Z96.652 Presence of left artificial knee joint; Y92.091 Bathroom in other non-institutional residence as the place of occurrence of the external cause; Y93.89 Activity, other specified; Z79.01 Long term (current) use of anticoagulants; Z79.4 Long term (current) use of insulin
CPT/HCPCS: 36415; 36416; 36430; 36556; 51702; 70450; 71045; 72125; 72170; 80048; 80053; 80162; 80306; 80307; 81003; 81015; 82533; 82805; 83605; 83735; 83880; 84100; 84484; 85007; 85025; 85027; 85610; 85730; 86850; 86900; 86901; 87040; 87070; 87077; 87086; 87149; 87186; 87205; 93005; 93010; 94002; 94003; 94640; 96361; 96365; 96374; 96375; C1713; C9132; G0390; J0131; J0360; J0690; J1160; J1720; J1815; J2001; J2270; J2370; J2405; J2543; J2704; J3010; J3370; J3430; J3475; J3490; J7050; J7070; J7620; J7799; P9045; P9059; S0028